=== PATIENT | female | born 1930 | race African-American/Black ===

== ENCOUNTER → 2016-11-09 | Outpatient (CLI) | payer MEDICARE, OTHER ==
[2016-11-09 09:35] LABS: ABSOLUTE EOSINOPHILS # (AUTO) 0.2 10^3/uL (0.0-0.6); ABSOLUTE LYMPHOCYTES (AUTO) 1.1 10^3/uL (0.5-4.7); ABSOLUTE MONOCYTES (AUTO) 0.8 10^3/uL (0.1-1.4); ABSOLUTE NEUT (AUTO) 3.4 10^3/uL (1.7-8.2); BASOPHILS % (AUTO) 0.5 % (0-2); EOSINOPHILS % (AUTO) 2.8 % (0-6); HEMATOCRIT 33.8 % (36.0-47.0); HEMOGLOBIN 11.3 g/dL (12.0-15.5); HGB HCT DIFFERENCE 0.1; LYMPHOCYTES % (AUTO) 20.1 % (13-45); MEAN CORPUSCULAR HEMOGLOBIN 34.4 pg (27.0-33.4); MEAN CORPUSCULAR HGB CONC 33.5 g/dL (32.0-36.0); MEAN CORPUSCULAR VOLUME 103 fl (80-97); MONOCYTES % (AUTO) 14.5 % (3-13); RED BLOOD COUNT 3.29 10^6/uL (3.72-5.28); RED CELL DISTRIBUTION WIDTH 14.1 % (11.5-14.0); SEGMENTED NEUTROPHILS % (AUTO) 62.1 % (42-78); WHITE BLOOD COUNT 5.5 10^3/uL (4.0-10.5)
[2016-11-09 10:14] LABS: ANION GAP 11 (5-19); BLOOD UREA NITROGEN 68 mg/dL (7-20); CALCIUM 9.4 mg/dL (8.4-10.2); CARBON DIOXIDE 24 mmol/L (22-30); CHLORIDE 107 mmol/L (98-107); CHOLESTEROL 128.05 mg/dL (0-200); CREATININE RESULT 2.87 mg/dL (0.52-1.25); Direct HDL 50 mg/dL (>40); GLUCOSE 107 mg/dL (75-110); POTASSIUM 4.9 mmol/L (3.6-5.0); SODIUM 142.4 mmol/L (137-145); TRIGLYCERIDES 49 mg/dL (<150)
[2016-11-09 10:24] LABS: DIRECT LDL 51 mg/dL (<100)
[2016-11-09 10:27] LABS: ALBUMIN 3.9 g/dL (3.5-5.0); ANION GAP 11 (5-19); BLOOD UREA NITROGEN 68 mg/dL (7-20); CALCIUM 9.4 mg/dL (8.4-10.2); CARBON DIOXIDE 24 mmol/L (22-30); CHLORIDE 107 mmol/L (98-107); CREATININE RESULT 2.87 mg/dL (0.52-1.25); GLUCOSE 107 mg/dL (75-110); PHOSPHORUS 3.9 mg/dL (2.5-4.5); POTASSIUM 4.9 mmol/L (3.6-5.0); SODIUM 142.4 mmol/L (137-145)
[2016-11-10 10:00] LABS: VITAMIN D 25-HYDROXY 27.5 ng/mL (30.0-100.0)
[2016-11-10 11:39] LABS: CREATININE URINE 73.7 mg/dL (Not Estab.)
[2016-11-10 12:28] LABS: MICROALBUMIN URINE 653.4 ug/mL (Not Estab.)
== END ==
LOC: LCAL 07:34
PROVIDERS: ATTEND Internal Medicine Nephrology
DX: E78.00 Pure hypercholesterolemia, unspecified (principal); Z79.899 Other long term (current) drug therapy; R06.02 Shortness of breath; N18.4 Chronic kidney disease, stage 4 (severe); R80.9 Proteinuria, unspecified; N25.81 Secondary hyperparathyroidism of renal origin; D63.1 Anemia in chronic kidney disease
CPT/HCPCS: 36415; 80048; 80061; 82040; 82043; 82306; 82570; 83880; 83970; 84100; 84443; 85025

== ENCOUNTER → 2017-02-22 | Outpatient (CLI) | payer MEDICARE, OTHER ==
[2017-02-22 13:34] LABS: ABSOLUTE EOSINOPHILS # (AUTO) 0.1 10^3/uL (0.0-0.6); ABSOLUTE LYMPHOCYTES (AUTO) 1.3 10^3/uL (0.5-4.7); ABSOLUTE MONOCYTES (AUTO) 0.9 10^3/uL (0.1-1.4); ABSOLUTE NEUT (AUTO) 4.6 10^3/uL (1.7-8.2); BASOPHILS % (AUTO) 0.4 % (0-2); EOSINOPHILS % (AUTO) 1.2 % (0-6); HEMATOCRIT 32.9 % (36.0-47.0); HEMOGLOBIN 11.1 g/dL (12.0-15.5); HGB HCT DIFFERENCE 0.4; LYMPHOCYTES % (AUTO) 19.2 % (13-45); MEAN CORPUSCULAR HEMOGLOBIN 34.7 pg (27.0-33.4); MEAN CORPUSCULAR HGB CONC 33.6 g/dL (32.0-36.0); MEAN CORPUSCULAR VOLUME 103 fl (80-97); RED BLOOD COUNT 3.18 10^6/uL (3.72-5.28); RED CELL DISTRIBUTION WIDTH 14.7 % (11.5-14.0); SEGMENTED NEUTROPHILS % (AUTO) 66.2 % (42-78); WHITE BLOOD COUNT 6.9 10^3/uL (4.0-10.5)
[2017-02-22 13:59] LABS: ALBUMIN 4.1 g/dL (3.5-5.0); ANION GAP 16 (5-19); BLOOD UREA NITROGEN 65 mg/dL (7-20); CALCIUM 9.2 mg/dL (8.4-10.2); CARBON DIOXIDE 24 mmol/L (22-30); CHLORIDE 101 mmol/L (98-107); CREATININE RESULT 3.05 mg/dL (0.52-1.25); GLUCOSE 139 mg/dL (75-110); PHOSPHORUS 3.8 mg/dL (2.5-4.5); POTASSIUM 3.7 mmol/L (3.6-5.0); SODIUM 141.4 mmol/L (137-145)
[2017-02-22 14:02] LABS: APPEARANCE,URINE CLEAR; BILIRUBIN,URINE NEGATIVE (NEGATIVE); GLUCOSE, URINE NEGATIVE (NEGATIVE); KETONES,URINE NEGATIVE (NEGATIVE); LEUKOCYTE ESTERASE,URINE NEGATIVE (NEGATIVE); NITRITE,URINE NEGATIVE (NEGATIVE); PROTEIN,URINE 100 mg/dL (NEGATIVE); URINE SPECIFIC GRAVITY 1.009; UROBILINOGEN,URINE NEGATIVE mg/dL (<2.0)
[2017-02-22 14:11] LABS: URINE CREATININE 66.7 mg/dL (15-278)
[2017-02-22 14:22] LABS: URINE PROTEIN 318.2 mg/dL (<12)
[2017-02-23 07:04] LABS: VITAMIN D 25-HYDROXY 31.3 ng/mL (30.0-100.0)
== END ==
LOC: OD 12:47
PROVIDERS: ATTEND Internal Medicine Nephrology
DX: N18.4 Chronic kidney disease, stage 4 (severe) (principal); D63.1 Anemia in chronic kidney disease; E83.39 Other disorders of phosphorus metabolism
CPT/HCPCS: 36415; 80048; 81001; 82040; 82306; 82570; 83970; 84100; 84156; 85025

== ENCOUNTER → 2017-04-02 | Outpatient (CLI) | payer MEDICARE, OTHER ==
[2017-04-02 11:38] LABS: APPEARANCE,URINE SLIGHTLY-CLOUDY; BILIRUBIN,URINE NEGATIVE (NEGATIVE); GLUCOSE, URINE 50 mg/dL (NEGATIVE); KETONES,URINE NEGATIVE (NEGATIVE); LEUKOCYTE ESTERASE,URINE NEGATIVE (NEGATIVE); NITRITE,URINE NEGATIVE (NEGATIVE); PROTEIN,URINE >=500 mg/dL (NEGATIVE); UROBILINOGEN,URINE NEGATIVE mg/dL (<2.0)
[2017-04-02 11:49] LABS: ABSOLUTE EOSINOPHILS # (AUTO) 0.1 10^3/uL (0.0-0.6); ABSOLUTE LYMPHOCYTES (AUTO) 1.4 10^3/uL (0.5-4.7); ABSOLUTE MONOCYTES (AUTO) 0.8 10^3/uL (0.1-1.4); ABSOLUTE NEUT (AUTO) 4.7 10^3/uL (1.7-8.2); BASOPHILS % (AUTO) 0.5 % (0-2); EOSINOPHILS % (AUTO) 1.8 % (0-6); HEMATOCRIT 29.3 % (36.0-47.0); HEMOGLOBIN 10.1 g/dL (12.0-15.5); LYMPHOCYTES % (AUTO) 20.2 % (13-45); MEAN CORPUSCULAR HEMOGLOBIN 34.9 pg (27.0-33.4); MEAN CORPUSCULAR HGB CONC 34.3 g/dL (32.0-36.0); MEAN CORPUSCULAR VOLUME 102 fl (80-97); MONOCYTES % (AUTO) 11.6 % (3-13); RED BLOOD COUNT 2.88 10^6/uL (3.72-5.28); RED CELL DISTRIBUTION WIDTH 15.1 % (11.5-14.0); SEGMENTED NEUTROPHILS % (AUTO) 65.9 % (42-78); WHITE BLOOD COUNT 7.1 10^3/uL (4.0-10.5)
[2017-04-02 12:00] LABS: URINE CREATININE 76.4 mg/dL (15-278)
[2017-04-02 12:12] LABS: ALBUMIN 3.2 g/dL (3.5-5.0); ANION GAP 11 (5-19); BLOOD UREA NITROGEN 48 mg/dL (7-20); CALCIUM 8.4 mg/dL (8.4-10.2); CARBON DIOXIDE 24 mmol/L (22-30); CHLORIDE 106 mmol/L (98-107); CREATININE RESULT 3.03 mg/dL (0.52-1.25); GLUCOSE 197 mg/dL (75-110); PHOSPHORUS 4.1 mg/dL (2.5-4.5); POTASSIUM 3.8 mmol/L (3.6-5.0)
[2017-04-02 12:20] LABS: URINE PROTEIN 831.5 mg/dL (<12)
[2017-04-04 10:39] LABS: VITAMIN D 25-HYDROXY 23.8 ng/mL (30.0-100.0)
== END ==
LOC: OD 10:46
PROVIDERS: ATTEND Internal Medicine Nephrology
DX: N18.4 Chronic kidney disease, stage 4 (severe) (principal); D63.1 Anemia in chronic kidney disease; E83.39 Other disorders of phosphorus metabolism
CPT/HCPCS: 36415; 80048; 81001; 82040; 82306; 82570; 83970; 84100; 84156; 85025

== ENCOUNTER 2017-05-07 09:48 | Emergency (ER) | payer MEDICARE, OTHER ==
--- NOTE | 2017-05-07 10:37 | ER Document Report ---
ED Medical Screen (RME) - General Chief Complaint: Nausea Stated Complaint: NAUSEA Time Seen by Provider: 05/07/17 10:36 Notes: Renal failure patient who is not on dialysis yet was at [facility] [place] began to feel poorly with nausea and right upper quadrant abdominal pain. She had been having right upper quadrant abdominal pain off and on for at least a month. She was checked by her ict project manager but ultrasound has not been done. EMS gave Zofran in route and she does feel much better at this time. I have greeted and performed a rapid initial assessment of this patient. A comprehensive ED assessment and evaluation of the patient, analysis of test results and completion of the medical decision making process will be conducted by additional ED providers. TRAVEL OUTSIDE OF THE [place] IN LAST 30 DAYS: No - Related Data Allergies/Adverse Reactions: codeine [Codeine] Allergy (Mild, Verified 05/07/17 10:28) n/v enalaprilat dihydrate [From Vasotec] Allergy (Mild, Verified 05/07/17 10:28) coughing cephalexin monohydrate [From Keflex] Allergy (Unknown, Verified 05/07/17 10:28) sulfamethoxazole [From Bactrim] Allergy (Unknown, Verified 05/07/17 10:28) trimethoprim [From Bactrim] Allergy (Unknown, Verified 05/07/17 10:28) Past Medical History - Social History Frequency of alcohol use: None Drug Abuse: None - Past Medical History Cardiac Medical History: Reports: Hx Congestive Heart Failure, Hx Hypercholesterolemia, Hx Hypertension Pulmonary Medical History: Neurological Medical History: Endocrine Medical History: Reports: Hx Diabetes Mellitus Type 2, Hx Hypothyroidism Renal/ Medical History: Denies: Hx Peritoneal Dialysis GI Medical History: Reports: Hx Gastroesophageal Reflux Disease Musculoskeltal Medical History: Psychiatric Medical History: Reports: Hx Depression - New Past Surgical History: Reports: Hx Cardiac Surgery - Stents, Hx Hysterectomy, Hx Tonsillectomy - Immunizations Hx Diphtheria, Pertussis, Tetanus Vaccination: Yes Physical Exam - Vital signs Vitals: Temp Pulse Resp BP Pulse Ox 97.8 F 55 L 20 149/55 H 100 05/07/17 09:56 05/07/17 09:56 05/07/17 09:56 05/07/17 09:56 05/07/17 09:56 Course - Vital Signs Vital signs: Temp Pulse Resp BP Pulse Ox 97.8 F 55 L 20 149/55 H 100 05/07/17 09:56 05/07/17 09:56 05/07/17 09:56 05/07/17 09:56 05/07/17 09:56
[2017-05-07 11:05] LABS: APPEARANCE,URINE SLIGHTLY-CLOUDY; BILIRUBIN,URINE NEGATIVE (NEGATIVE); GLUCOSE, URINE NEGATIVE (NEGATIVE); KETONES,URINE NEGATIVE (NEGATIVE); LEUKOCYTE ESTERASE,URINE MODERATE (NEGATIVE); NITRITE,URINE NEGATIVE (NEGATIVE); PROTEIN,URINE >=500 mg/dL (NEGATIVE); URINE SPECIFIC GRAVITY 1.009; UROBILINOGEN,URINE NEGATIVE mg/dL (<2.0)
[2017-05-07 11:22] LABS: ABSOLUTE EOSINOPHILS # (AUTO) 0.1 10^3/uL (0.0-0.6); ABSOLUTE LYMPHOCYTES (AUTO) 0.9 10^3/uL (0.5-4.7); ABSOLUTE MONOCYTES (AUTO) 0.7 10^3/uL (0.1-1.4); ABSOLUTE NEUT (AUTO) 5.4 10^3/uL (1.7-8.2); BASOPHILS % (AUTO) 0.6 % (0-2); EOSINOPHILS % (AUTO) 0.7 % (0-6); HEMATOCRIT 31.8 % (36.0-47.0); HEMOGLOBIN 10.8 g/dL (12.0-15.5); HGB HCT DIFFERENCE 0.6; LYMPHOCYTES % (AUTO) 12.8 % (13-45); MEAN CORPUSCULAR HEMOGLOBIN 34.6 pg (27.0-33.4); MEAN CORPUSCULAR HGB CONC 34.1 g/dL (32.0-36.0); MEAN CORPUSCULAR VOLUME 101 fl (80-97); MONOCYTES % (AUTO) 9.4 % (3-13); RED BLOOD COUNT 3.13 10^6/uL (3.72-5.28); RED CELL DISTRIBUTION WIDTH 14.2 % (11.5-14.0); SEGMENTED NEUTROPHILS % (AUTO) 76.5 % (42-78); WHITE BLOOD COUNT 7.1 10^3/uL (4.0-10.5)
--- NOTE | 2017-05-07 11:51 | RADIOLOGY REPORT (SQ) ---
EXAM DESCRIPTION: U/S ABDOMEN LIMITED W/O DOP COMPLETED DATE/TIME: 05/07/2017 11:39 am REASON FOR STUDY: RUQ abd pain COMPARISON: CT chest 12/11/2015 TECHNIQUE: Dynamic and static grayscale images acquired of the abdomen and recorded on PACS. Additio nal selected color Doppler and spectral images recorded. LIMITATIONS: Midline bowel gas, hepatic flexure of colon shadowing over the gallbladder fossa FINDINGS: PANCREAS: Midline pancreas unremarkable LIVER: No masses. Echotexture normal. LIVER VASCULATURE: Normal directional flow of the main portal vein and hepatic veins. GALLBLADDER: Limited visualization. No stones. No gallbladder wall thickening. No pericholecystic fluid. ULTRASOUND-DETECTED KOENIG'S SIGN: Negative. INTRAHEPATIC DUCTS AND COMMON DUCT: CBD and intrahepatic ducts normal caliber. No filling defects. INFERIOR VENA CAVA: Normal flow. AORTA: Diffuse atherosclerotic calcification without aneurysm RIGHT KIDNEY: 10 cm in length, with diffuse cortical thinning and increased echogenicity from medica l renal disease. No right hydronephrosis. No cysts, stones, or masses PERITONEAL AND RIGHT PLEURAL SPACE: No ascites or effusions. OTHER: No other significant findings. IMPRESSION: No gallstones or ultrasound evidence of acute cholecystitis TECHNICAL DOCUMENTATION: JOB ID: [id number] [employer]- All Rights Reserved
--- NOTE | 2017-05-07 12:30 | ER Document Report ---
ED General - General Chief Complaint: Nausea Stated Complaint: NAUSEA Time Seen by Provider: 05/07/17 10:36 Mode of Arrival: Ambulatory Information source: Patient, Emergency Med Personnel Notes: 87 yr old female presents with complaints of nausea after eating at [employer]. Pt denies any fevers or chills, denies any vomiting. TRAVEL OUTSIDE OF THE [place] IN LAST 30 DAYS: No - HPI Onset: Just prior to arrival Onset/Duration: Sudden Quality of pain: Cramping Severity: Mild Pain Level: Denies Associated symptoms: Nausea Exacerbated by: Food Relieved by: Denies Similar symptoms previously: No Recently seen / treated by doctor: No - Related Data Allergies/Adverse Reactions: codeine [Codeine] Allergy (Mild, Verified 05/07/17 10:28) n/v enalaprilat dihydrate [From Vasotec] Allergy (Mild, Verified 05/07/17 10:28) coughing cephalexin monohydrate [From Keflex] Allergy (Unknown, Verified 05/07/17 10:28) sulfamethoxazole [From Bactrim] Allergy (Unknown, Verified 05/07/17 10:28) trimethoprim [From Bactrim] Allergy (Unknown, Verified 05/07/17 10:28) Past Medical History - Social History Smoking Status: Never Smoker Cigarette use (# per day): No Chew tobacco use (# tins/day): No Smoking Education Provided: No Frequency of alcohol use: None Drug Abuse: None Family History: CAD - Past Medical History Cardiac Medical History: Reports: Hx Congestive Heart Failure, Hx Hypercholesterolemia, Hx Hypertension Pulmonary Medical History: Neurological Medical History: Endocrine Medical History: Reports: Hx Diabetes Mellitus Type 2, Hx Hypothyroidism Renal/ Medical History: Denies: Hx Peritoneal Dialysis GI Medical History: Reports: Hx Gastroesophageal Reflux Disease Musculoskeltal Medical History: Psychiatric Medical History: Reports: Hx Depression - New Past Surgical History: Reports: Hx Cardiac Surgery - Stents, Hx Hysterectomy, Hx Tonsillectomy - Immunizations Hx Diphtheria, Pertussis, Tetanus Vaccination: Yes Hx Pneumococcal Vaccination: 06/20/15 Review of Systems - Review of Systems Notes: REVIEW OF SYSTEMS: CONSTITUTIONAL : Denies fever, chills, or sweats. Denies recent illness. EENT: Denies eye, ear, throat, or mouth pain or symptoms. Denies nasal or sinus congestion or discharge. Denies throat, tongue, or mouth swelling or difficulty swallowing. CARDIOVASCULAR: Denies chest pain. Denies palpitations or racing or irregular heart beat. Denies ankle edema. RESPIRATORY: Denies cough, cold, or chest congestion. Denies shortness of breath, difficulty breathing, or wheezing. GASTROINTESTINAL: Admits to nausea GENITOURINARY: Denies difficulty urinating, painful urination, burning, frequency, blood in urine, or discharge. FEMALE GENITOURINARY: Denies vaginal bleeding, heavy or abnormal periods, irregular periods. Denies vaginal discharge or odor. MUSCULOSKELETAL: Denies back or neck pain or stiffness. Denies joint pain or swelling. SKIN: Denies rash, lesions or sores. HEMATOLOGIC : Denies easy bruising or bleeding. LYMPHATIC: Denies swollen, enlarged glands. NEUROLOGICAL: Denies confusion or altered mental status. Denies passing out or loss of consciousness. Denies dizziness or lightheadedness. Denies headache. Denies weakness or paralysis or loss of use of either side. Denies problems with gait or speech. Denies sensory loss, numbness, or tingling. Denies seizures. PSYCHIATRIC: Denies anxiety or stress. Denies depression, suicidal ideation, or homicidal ideation. ALL OTHER SYSTEMS REVIEWED AND NEGATIVE. PHYSICAL EXAMINATION: GENERAL: Well-appearing, well-nourished and in no acute distress. HEAD: Atraumatic, normocephalic. EYES: Pupils equal round and reactive to light, extraocular movements intact, conjunctiva are normal. ENT: Nares patent, oropharynx clear without exudates. Moist mucous membranes. NECK: Normal range of motion, supple without lymphadenopathy LUNGS: Breath sounds clear to auscultation bilaterally and equal. No wheezes rales or rhonchi. HEART: Regular rate and rhythm without murmurs ABDOMEN: Soft, nontender, nondistended abdomen. No guarding, no rebound. No masses appreciated. Female : deferred Musculoskeletal: Normal range of motion, no pitting or edema. No cyanosis. NEUROLOGICAL: Cranial nerves grossly intact. Normal speech, normal gait. Normal sensory, motor exams PSYCH: Normal mood, normal affect. SKIN: Warm, Dry, normal turgor, no rashes or lesions noted. Dictation was performed using [employer] voice recognition software Physical Exam - Vital signs Vitals: Temp Pulse Resp BP Pulse Ox 97.8 F 55 L 20 149/55 H 100 08/18/17 09:56 05/07/17 09:56 05/07/17 09:56 05/07/17 09:56 05/07/17 09:56 Course - Re-evaluation Re-evalutation: 05/07/17 12:38 Physical examination lab work note no significant abnormality patient otherwise looks well. 05/07/17 14:33 Patient has been completely asymptomatic since, 05/07/17 15:24 Patient has stayed asymptomatic, mild lipase elevation noted, otherwise she looks well is in no distress. CT did not note any significant abnormality I will discharge home at this time After performing a Medical Screening Examination, I estimate there is LOW risk for ACUTE APPENDICITIS, BOWEL OBSTRUCTION, ACUTE CHOLECYSTITIS, PERFORATED DIVERTICULITIS, INCARCERATED HERNIA, PANCREATITIS, PELVIC INFLAMMATORY DISEASE, PERFORATED ULCER, ECTOPIC , or TUBO-OVARIAN ABSCESS, thus I consider the discharge disposition reasonable. Also, there is no evidence or peritonitis , sepsis, or toxicity. I have reevaluated this patient multiple times and no significant life threatening changes are noted. The patient and I have discussed the diagnosis and risks, and we agree with discharging home with close follow-up with the understanding that symptoms and presentations can change. We also discussed returning to the Emergency Department immediately if new or worsening symptoms occur. We have discussed the symptoms which are most concerning (e.g., bloody stool, fever, changing or worsening pain, vomiting) that necessitate immediate return. - Vital Signs Vital signs: Temp Pulse Resp BP Pulse Ox 97.5 F 61 16 147/59 H 100 05/07/17 13:56 05/07/17 13:56 05/07/17 13:56 05/07/17 13:56 05/07/17 13:56 - Laboratory Result Diagrams: 05/07/17 10:55 05/07/17 13:24 Laboratory results interpreted by me: 05/07/17 05/07/17 05/07/17 10:49 10:55 13:24 RBC 3.13 L Hgb 10.8 L Hct 31.8 L MCV 101 H MCH 34.6 H RDW 14.2 H Lymphocytes % 12.8 L Sodium 135.4 L Chloride 97 L BUN 112 H Creatinine 5.75 H Est GFR ( Amer) 8 L Est GFR (Non-Af Amer) 7 L Glucose 165 H Direct Bilirubin 0.5 H Lipase 400.3 H Urine Protein >=500 H Ur Leukocyte Esterase MODERATE H - Diagnostic Test Radiology reviewed: Image reviewed, Reports reviewed - report given to daughter Discharge - Discharge Clinical Impression: Elevated lipase, Nausea CKD (chronic kidney disease) Qualifiers: Chronic kidney disease stage: stage 4 (severe) Qualified Code(s): N18.4 - Chronic kidney disease, stage 4 (severe) Condition: Stable Disposition: HOME, SELF-CARE Instructions: Pancreatitis ([facility]) Prescriptions: Ondansetron [Zofran Odt 4 mg Tablet] 1 - 2 tab PO Q4H PRN #15 tab.rapdis PRN Reason: For Nausea/Vomiting Referrals: MELINA CHAVEZ MD [Primary Care Provider] - Follow up tomorrow
[2017-05-07 13:57] VITALS: BP 147/59
[2017-05-07 14:04] LABS: ALANINE AMINOTRANSFERASE 32 U/L (9-52); ALBUMIN 3.7 g/dL (3.5-5.0); ALKALINE PHOSPHATASE 89 U/L (38-126); ANION GAP 13 (5-19); ASPARTATE AMINO TRANSFERASE 26 U/L (14-36); BILIRUBIN,DIRECT 0.5 mg/dL (0.0-0.4); BILIRUBIN,TOTAL 0.5 mg/dL (0.2-1.3); BLOOD UREA NITROGEN 112 mg/dL (7-20); CALCIUM 8.9 mg/dL (8.4-10.2); CARBON DIOXIDE 25 mmol/L (22-30); CHLORIDE 97 mmol/L (98-107); CREATININE RESULT 5.75 mg/dL (0.52-1.25); GLUCOSE 165 mg/dL (75-110); POTASSIUM 3.9 mmol/L (3.6-5.0); SODIUM 135.4 mmol/L (137-145)
[2017-05-07 14:05] LABS: LIPASE 400.3 U/L (23-300); TOTAL PROTEIN 6.9 g/dL (6.3-8.2)
--- NOTE | 2017-05-07 15:21 | RADIOLOGY REPORT (SQ) ---
"EXAM DESCRIPTION: CT ABD/PELVIS NO ORAL OR IV COMPLETED DATE/TIME: 05/07/2017 2:48 pm REASON FOR STUDY: elevated lipase COMPARISON: Abdominal ultrasound 05/07/2017, 05/04/2008 TECHNIQUE: CT scan of the abdomen and pelvis performed without intravenous or oral contrast. Images reviewed with lung, soft tissue, and bone windows. Reconstructed coronal and sagittal MPR images revi ewed. All images stored on PACS. All CT scanners at this facility use dose modulation, iterative reconstruction, and/or weight based d osing when appropriate to reduce radiation dose to as low as reasonably achievable (ALARA). [facility]: Dose Right [facility]: CareDose [facility]: Dose Right [facility]: Teradose 4D [facility]: Smart WOWIO RADIATION DOSE: Up-to-date CT equipment and radiation dose reduction techniques were employed. CTDIv ol: 5.8 mGy. DLP: 293 mGy-cm.mGy. LIMITATIONS: None. FINDINGS: LOWER CHEST: No significant findings. No nodules or infiltrates. NON-CONTRASTED LIVER, SPLEEN, ADRENALS: 1.5 x 1.3 cm right adrenal nodule. Left adrenal gland, liver , spleen unremarkable PANCREAS: No masses. No peripancreatic inflammatory changes. GALLBLADDER: No identified stones by CT criteria. No inflammatory changes to suggest cholecystitis. RIGHT KIDNEY AND URETER: No suspicious masses. Assessment limited by lack of IV contrast. Right kidn ey is small, 8 cm in greatest length, with cortical thinning. Punctate calcification right mid-pole kidney, could be vascular or pain nonobstructive tiny intrarenal stone 2 to 3 mm in size. . No hyd ronephrosis or hydroureter. LEFT KIDNEY AND URETER: No suspicious masses. Assessment limited by lack of IV contrast. 3 cm left u pper pole renal cortical cyst, 1.6 cm left midpole renal cortical cyst. Left kidney is small, 7 cm i n greatest length. No significant calcifications. No hydronephrosis or hydroureter. AORTA AND RETROPERITONEUM: No aneurysm. No retroperitoneal masses or adenopathy. BOWEL AND PERITONEAL CAVITY: No obvious masses or inflammatory changes. No free fluid. APPENDIX: Not definitely identified. No right lower quadrant inflammatory change. PELVIS, BLADDER, AND ABDOMINAL WALL:No abnormal masses. No free fluid. Bladder normal. Post hysterec rober BONES: No significant findings. OTHER: No other significant finding. IMPRESSION: No CT evidence of acute pancreatitis. Small bilateral kidneys, left renal cortical cysts. TECHNICAL DOCUMENTATION: JOB ID: [id number] Quality ID # [id number]: Final reports with documentation of one or more dose reduction techniques (e.g., Au tomated exposure control, adjustment of the mA and/or kV according to patient size, use of iterative reconstruction technique) 2010 [employer] | [employer]- All Rights Reserved"
== END 2017-05-07 15:49 | disposition home or self-care (01) ==
LOC: ER 09:48
DX: N18.4 Chronic kidney disease, stage 4 (severe) (principal); R11.0 Nausea
CPT/HCPCS: 36415; 74176; 76705; 80053; 81001; 83690; 85025; 99284

== ENCOUNTER 2017-05-28 11:04 | Inpatient (IN) | payer MEDICARE, OTHER ==
--- NOTE | 2017-05-28 11:46 | ER Document Report ---
ED Dizziness/Weakness - General Chief Complaint: Weakness Stated Complaint: WEAKNESS Time Seen by Provider: 05/28/17 11:38 Mode of Arrival: Medic Information source: Patient Notes: 87 yo female with confusion at times, [place] that lives at [facility] (x 1 yr ) Feels like she is not doing well. 05-07 seen for nausea, scans (tx with zofran ) using some since. Am's nausea. Decreased activity and appetite past few days with increased nausea, and didn't want to get out of bed this morning. Wednesday while waiting in car for 15 minutes at the outlets, got up and was dizzy. PMH: stage 5 renal dx (13%)-dr olguin, she refused to get blood drawn yesterday appt was today at 0830. dm2. Hx. CHF & CAD, stents. Hypothyroidism. dr. VILLALBA turosemide increased on the 05-03. PCP: dr chavez TRAVEL OUTSIDE OF THE [place] IN LAST 30 DAYS: No - Related Data Allergies/Adverse Reactions: codeine [Codeine] Allergy (Mild, Verified 05/07/17 10:28) n/v enalaprilat dihydrate [From Vasotec] Allergy (Mild, Verified 05/07/17 10:28) coughing cephalexin monohydrate [From Keflex] Allergy (Unknown, Verified 05/07/17 10:28) sulfamethoxazole [From Bactrim] Allergy (Unknown, Verified 05/07/17 10:28) trimethoprim [From Bactrim] Allergy (Unknown, Verified 05/07/17 10:28) Home Medications: Current Home Medications Acetaminophen [Tylenol 325 mg Tablet] 650 mg PO Q8 PRN 05/28/17 [History] Albuterol Sulfate [Proair HFA] 2 puff IH Q6 PRN 05/28/17 [History] Amlodipine Besylate 2.5 mg PO DAILY 05/28/17 [History] Calcitriol [Calcitriol] 0.25 mcg PO Q2DAYS 05/28/17 [History] Calcium Carbonate [Calcium] 500 mg PO BID 05/28/17 [History] Carvedilol [Coreg] 1 tab PO Q12 05/28/17 [History] Cholecalciferol (Vitamin D3) [Vitamin D3 1000 Unit Tablet] 1,000 unit PO DAILY 05/28/17 [History] Clonidine HCl 0.3 mg PO Q8 05/28/17 [History] Doxazosin Mesylate [Cardura] 8 mg PO DAILY 05/28/17 [History] Doxycycline Hyclate 20 mg PO BID 05/28/17 [History] Ezetimibe [Zetia 10 mg Tablet] 10 mg PO DAILY 05/28/17 [History] Ferrous Sulfate 325 mg PO BID 05/28/17 [History] Fluticasone Propionate [Flonase Nasal [place] 50 Mcg/[place] 16 gm] 2 spray NASL DAILY 05/28/17 [History] Hydralazine HCl 100 mg PO TID 05/28/17 [History] Ipratropium/Albuterol Sulfate [Iprat-Albut 0.5-3(2.5) Mg/3 Ml] 3 ml IH Q6 PRN [History] Isosorbide Dinitrate [Isordil Titradose 20 Mg Tablet] 20 mg PO TID 05/28/17 [ History] Levothyroxine Sodium 125 mcg PO DAILY 05/28/17 [History] Nystatin 1 each TOP PRN PRN 05/28/17 [History] Ondansetron [Zofran Odt 4 mg Tablet] 4 mg PO Q8H PRN 05/28/17 [History] Sennosides/Docusate Sodium [Senna-S Tablet] 1 each PO DAILY PRN 05/28/17 [ History] Sertraline HCl [Zoloft] 25 mg PO DAILY 05/28/17 [History] Simvastatin 20 mg PO DAILY 05/28/17 [History] Sodium Bicarbonate [Sodium Bicarbonate 650 mg Tablet] 650 mg PO DAILY 05/28/17 [ History] Spironolactone 25 mg PO DAILY 05/28/17 [History] Torsemide [Demadex] 40 mg PO DAILY 05/28/17 [History] Past Medical History - General Information source: Patient - Social History Smoking Status: Former Smoker Chew tobacco use (# tins/day): No Frequency of alcohol use: None Drug Abuse: None Family History: CAD, Hypertension - Past Medical History Cardiac Medical History: Reports: Hx Congestive Heart Failure, Hx Coronary Artery Disease - stents, Hx Hypercholesterolemia, Hx Hypertension Pulmonary Medical History: Neurological Medical History: Endocrine Medical History: Reports: Hx Diabetes Mellitus Type 2, Hx Hypothyroidism Renal/ Medical History: Reports: Hx End Stage Renal Disease. Denies: Hx Peritoneal Dialysis GI Medical History: Reports: Hx Gastroesophageal Reflux Disease Musculoskeltal Medical History: Psychiatric Medical History: Reports: Hx Depression - New Past Surgical History: Reports: Hx Cardiac Surgery - Stents, Hx Hysterectomy, Hx Tonsillectomy - Immunizations Hx Diphtheria, Pertussis, Tetanus Vaccination: Yes Hx Pneumococcal Vaccination: 06/20/15 Review of Systems - Review of Systems Constitutional: See HPI EENT: No symptoms reported Cardiovascular: No symptoms reported Respiratory: No symptoms reported Gastrointestinal: See HPI Genitourinary: No symptoms reported Female Genitourinary: No symptoms reported Musculoskeletal: No symptoms reported Skin: No symptoms reported Hematologic/Lymphatic: No symptoms reported Neurological/Psychological: See HPI Physical Exam - Vital signs Vitals: Temp Pulse Resp BP Pulse Ox 97.5 F 46 L 20 162/58 H 96 05/28/17 11:11 05/28/17 11:11 05/28/17 11:11 05/28/17 11:11 05/28/17 11:11 Interpretation: Normal - General General appearance: Appears well, Alert In distress: None - HEENT Head: Normocephalic, Atraumatic Eyes: Normal Conjunctiva: Normal Pupils: PERRL Mucous membranes: Dry Neck: Supple. No: Lymphadenopathy - Respiratory Respiratory status: No respiratory distress Chest status: Nontender Breath sounds: Normal Chest palpation: Normal - Cardiovascular Rhythm: Regular, Bradycardia, Other - few unifocal PVC Heart sounds: Normal auscultation Murmur: No - Abdominal Inspection: Normal Distension: No distension Bowel sounds: Normal Tenderness: Nontender. No: Tender Organomegaly: No organomegaly - Back Back: Normal, Nontender. No: CVA tenderness - Extremities General upper extremity: Normal inspection, Nontender, Normal color, Normal ROM , Normal temperature General lower extremity: Normal inspection, Nontender, Edema - mild bilateral, Normal color, Normal ROM, Normal temperature, Normal weight bearing. No: José Miguel' s sign - Neurological Neuro grossly intact: Yes Cognition: Normal Orientation: AAOx4 [place] Coma Scale Eye Opening: Spontaneous [place] Coma Scale Verbal: Oriented [place] Coma Scale Motor: Obeys Commands Golden Coma Scale Total: 15 Speech: Normal Motor strength normal: LUE, RUE, LLE, RLE Sensory: Normal - Psychological Associated symptoms: Normal affect, Normal mood Notes: forgetful seeking information from her daughter - Skin Skin Temperature: Warm Skin Moisture: Dry Skin Color: Normal Skin irregularity: negative: Rash Course - Re-evaluation Re-evalutation: 05/28/17 12:51 borderline cardiomegaly without failure. 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 05/28/17 12:52 05/28/17 13:38 bun and creatitnine are elevating. cardiacs negative. ekg SB 1 degree AV block with unifocal PVC dr. olguin will do dialysis today, dr gray is putting the trialysis catheter, dr. ambrosio will admit to medical floor. pt agrees to the procedure 05/28/17 13:40 - Vital Signs Vital signs: Temp Pulse Resp BP Pulse Ox 97.5 F 46 L 20 162/58 H 96 05/28/17 11:11 05/28/17 11:11 05/28/17 11:11 05/28/17 11:11 05/28/17 11:11 - Laboratory Result Diagrams: 05/28/17 11:08 05/28/17 11:08 Laboratory results interpreted by me: 05/28/17 05/28/17 05/28/17 11:08 11:08 11:08 RBC 3.42 L Hgb 11.9 L Hct 34.7 L MCV 101 H MCH 34.8 H RDW 14.1 H Chloride 95 L BUN 121 H Creatinine 7.05 H Est GFR ( Amer) 7 L Est GFR (Non-Af Amer) 5 L Glucose 181 H Magnesium 3.1 H Direct Bilirubin 0.6 H AST 37 H TSH 11.90 H Urine Protein Ur Leukocyte Esterase 05/28/17 12:26 RBC Hgb Hct MCV MCH RDW Chloride BUN Creatinine Est GFR ( Amer) Est GFR (Non-Af Amer) Glucose Magnesium Direct Bilirubin AST TSH Urine Protein 100 H Ur Leukocyte Esterase SMALL H Discharge - Discharge Clinical Impression: end stage renal disease, azotemia, dialysis onset Condition: Stable Disposition: ADMITTED INPATIENT Admitting Provider: Hospitalist Unit Admitted: Medical Floor - 4th floor dialysis Referrals: MELINA CHAVEZ MD [Primary Care Provider] - Follow up as needed
[2017-05-28 12:00] LABS: ABSOLUTE EOSINOPHILS # (AUTO) 0.1 10^3/uL (0.0-0.6); ABSOLUTE LYMPHOCYTES (AUTO) 1.1 10^3/uL (0.5-4.7); ABSOLUTE MONOCYTES (AUTO) 0.5 10^3/uL (0.1-1.4); ABSOLUTE NEUT (AUTO) 4.8 10^3/uL (1.7-8.2); ALANINE AMINOTRANSFERASE 17 U/L (9-52); ALBUMIN 4.4 g/dL (3.5-5.0); ALKALINE PHOSPHATASE 78 U/L (38-126); ANION GAP 16 (5-19); ASPARTATE AMINO TRANSFERASE 37 U/L (14-36); BASOPHILS % (AUTO) 0.4 % (0-2); BILIRUBIN,DIRECT 0.6 mg/dL (0.0-0.4); BILIRUBIN,TOTAL 0.6 mg/dL (0.2-1.3); CALCIUM 9.6 mg/dL (8.4-10.2); CARBON DIOXIDE 27 mmol/L (22-30); CHLORIDE 95 mmol/L (98-107); CREATININE RESULT 7.05 mg/dL (0.52-1.25); EOSINOPHILS % (AUTO) 0.9 % (0-6); GLUCOSE 181 mg/dL (75-110); HEMATOCRIT 34.7 % (36.0-47.0); HEMOGLOBIN 11.9 g/dL (12.0-15.5); MAGNESIUM 3.1 mg/dL (1.6-2.3); MEAN CORPUSCULAR HEMOGLOBIN 34.8 pg (27.0-33.4); MEAN CORPUSCULAR HGB CONC 34.3 g/dL (32.0-36.0); MEAN CORPUSCULAR VOLUME 101 fl (80-97); MONOCYTES % (AUTO) 8.3 % (3-13); POTASSIUM 3.8 mmol/L (3.6-5.0); RED BLOOD COUNT 3.42 10^6/uL (3.72-5.28); RED CELL DISTRIBUTION WIDTH 14.1 % (11.5-14.0); SEGMENTED NEUTROPHILS % (AUTO) 73.4 % (42-78); SODIUM 138.1 mmol/L (137-145); TOTAL PROTEIN 7.9 g/dL (6.3-8.2); WHITE BLOOD COUNT 6.5 10^3/uL (4.0-10.5)
[2017-05-28 12:07] LABS: BLOOD UREA NITROGEN 121 mg/dL (7-20)
--- NOTE | 2017-05-28 12:37 | RADIOLOGY REPORT (SQ) ---
EXAM DESCRIPTION: CHEST SINGLE VIEW COMPLETED DATE/TIME: 05/28/2017 12:22 pm REASON FOR STUDY: weakness, nausea COMPARISON: 01/14/2016 EXAM PARAMETERS: NUMBER OF VIEWS: One view. TECHNIQUE: Single frontal radiographic view of the chest acquired. RADIATION DOSE: NA LIMITATIONS: None. FINDINGS: LUNGS AND PLEURA: No opacities, masses or pneumothorax. No pleural effusion. MEDIASTINUM AND HILAR STRUCTURES: No masses. Contour normal. HEART AND VASCULAR STRUCTURES: Heart size is borderline. There is no evidence of failure. BONES: No acute findings. HARDWARE: None in the chest. OTHER: No other significant finding. IMPRESSION: Borderline cardiomegaly without CHF. TECHNICAL DOCUMENTATION: JOB ID: [id number]
[2017-05-28 12:48] LABS: CREATINE KINASE MB 1.74 ng/mL (<4.55); TROPONIN I 0.013 ng/mL
[2017-05-28 13:01] LABS: APPEARANCE,URINE SLIGHTLY-CLOUDY; BILIRUBIN,URINE NEGATIVE (NEGATIVE); GLUCOSE, URINE NEGATIVE (NEGATIVE); KETONES,URINE NEGATIVE (NEGATIVE); LEUKOCYTE ESTERASE,URINE SMALL (NEGATIVE); NITRITE,URINE NEGATIVE (NEGATIVE); PROTEIN,URINE 100 mg/dL (NEGATIVE); URINE SPECIFIC GRAVITY 1.009; UROBILINOGEN,URINE NEGATIVE mg/dL (<2.0)
--- NOTE | 2017-05-28 13:13 | EKG REPORT ---
SEVERITY:- ABNORMAL ECG - SINUS RHYTHM MULTIPLE VENTRICULAR PREMATURE COMPLEXES FIRST DEGREE AV BLOCK LEFT VENTRICULAR HYPERTROPHY : Confirmed by: Mario Tirado MD 28-May-2017 13:12:57
[2017-05-28] MEDS ORDERED: NORMAL SALINE 1000 ML 1,000 ML IV PRN (15:56)
[2017-05-28] MEDS ORDERED: ACETAMINOPHEN 325 MG TABLET PO PRN (16:26)
--- NOTE | 2017-05-28 16:54 | PDOC CONSULTATION ---
Consultation Consult Date: 05/28/17 Attending physician:: NAEEM CAIN Consult reason:: I was asked by the emergency room provider Serina Esquivel NP and Dr. Lozoya to see this patient because of uremic symptoms requiring emergent initiation of hemodialysis. History of Present Illness Admission Date/PCP: 05/28/17 14:15 MELINA CHAVEZ MD History of Present Illness: SUDHIR HANSON is a 87 year old female known to me with history of chronic kidney disease stage V secondary to hypertensive nephrosclerosis, hypertension, diabetes mellitus type 2, and coronary artery disease who presented to the emergency room today because of weakness and persistent nausea and vomiting. On May 07, 2017 patient presented with symptoms of of nausea and vomiting after eating at [facility]. Patient was evaluated here in the emergency room and she has had abdominal ultrasound and CT scan of the abdomen which was negative. At that time she did have elevated BUN of 112 and creatinine of 5.75. She was sent home with Zofran. Prior to that when I last saw her in the clinic on April 16 she had a BUN of 79 and creatinine of 4.07 with estimated GFR of 13. Patient has been having progressively increasing of her bilateral lower extremity edema for the last 2 months. This requires increasing her diuretics with addition of metolazone. Patient swelling has improved and she was feeling okay for a while. However since May 07 patient admitted that that she has been having periodic nausea and vomiting which has gotten worse for the past week. She admitted feeling dizzy, weak and has decreased appetite. Her daughter reports that the patient has not been eating well no drinking fluids well. Patient denies any decrease in urine output. She denies any chest pains no shortness of breath no cough. She saw Dr. 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 There was also some report of confusion periodically at [facility] where she resides. On Wednesday she has had another basic metabolic panel which shows a BUN of 127 and creatinine of 6.97. I held her metolazone and decrease her torsemide to just once a day. However despite that she presents today with a BUN of 121 and creatinine of 7.05 with persistent symptoms as above. At this point I think patient would need to be initiated with renal replacement therapy which we have been talking about the kidneys for the past year and more so for the last 2 months. When I last saw her in March, I talked to her about placing a vascular access but patient has not decided at that time. Today after discussing with her and her daughter about the need for emergent initiation of renal replacement therapy this, discussing the benefits and the risks of it the patient and daughter agreed to proceed. The risks of the procedure include bleeding, infection, hemodynamic instability including sudden . Immediately we ask for vascular surgeon consult to put in a temporary trialysis catheter. Dr. Seay initially talked with the patient but the patient was a little hesitant at the time. After I talked to the patient and the daughter she finally agreed and so we had to call Dr. Consuelo James because Dr. Seay was already in another case in the operating room. Dr. James was kind enough to put in a trialysis catheter. Currently I am seeing the patient during dialysis treatment using her newly placed right inguinal trialysis catheter. She seems to be comfortable except for occasional cramping. Patient will be monitored very closely by her dialysis nurse at bedside. Dialysis procedure were explained to the patient and she understood. Past Medical History Cardiac Medical History: Reports: Coronary Artery Disease - stents, Hyperlipidemia, Hypertension-primary Pulmonary Medical History: Neurological Medical History: Endocrine Medical History: Reports: Diabetes Mellitus Type 2, Hypothyroidism Renal/ Medical History: Reports: Chronic Kidney Disease Stage V, Hyperkalemia , Hyperphosphatemia, Metabolic Acidosis, Proteinuria, Secondary Hyperparathyroidism GI Medical History: Reports: Gastroesophageal Reflux Disease Musculoskeltal Medical History: Reports: Gout, Other - History of cervical spine fracture Psychiatric Medical History: Reports: Depression - New Hematology Medical History: Reports Anemia of Chronic Kidney Disease Past Surgical History Past Surgical History: Reports: Appendectomy, Coronary Stent, Hysterectomy, Orthopedic Surgery - Toe surgery, Tonsillectomy, Other - Breast biopsy, eye surgery Social History Information Source: Patient, [facility] Office Lives with: Other - Assisted living at [facility] Smoking Status: Never Smoker Frequency of Alcohol Use: None Hx Recreational Drug Use: No Hx Prescription Drug Abuse: No Family History Family History: CAD - Brother and father, CVA - Mother, Malignancy - Sister, prostate cancer her brother, Thyroid Disfunction - Sister and daughter, Other - Dementia and her sister Parental Family History Reviewed: Yes Children Family History Reviewed: Yes Sibling(s) Family History Reviewed.: Yes Medication/Allergy Home Medications: Acetaminophen [Tylenol 325 mg Tablet] 650 mg PO Q8HP PRN 05/28/17 Albuterol Sulfate [Proair HFA] 2 puff IH Q6HP PRN 05/28/17 Amlodipine Besylate [Norvasc 2.5 mg Tablet] 2.5 mg PO QHS 05/28/17 Aspirin [Ecotrin 81 mg EC Tablet] 81 mg PO DAILY 05/28/17 Calcitriol [Rocaltrol] 0.25 mcg PO MOWEFR@1000 05/28/17 Calcium Carbonate [Tums Chewable 500 mg Tab.chew] 500 mg PO BIDLS 05/28/17 Carvedilol [Coreg 12.5 mg Tablet] 12.5 mg PO Q12 05/28/17 Cholecalciferol (Vitamin D3) [Vitamin D3 1000 Unit Tablet] 1,000 unit PO DAILY 05/28/17 Clonidine HCl [Catapres 0.3 mg Tablet] 0.3 mg PO Q8 05/28/17 Doxazosin Mesylate [Cardura] 8 mg PO DAILY 05/28/17 Doxycycline Hyclate 20 mg PO BID 05/28/17 Ezetimibe [Zetia 10 mg Tablet] 10 mg PO DAILY 05/28/17 Ferrous Sulfate [Feosol] 325 mg PO BID 05/28/17 Fluticasone Propionate [Flonase Nasal [place] 50 Mcg/[place] 16 gm] 2 sprays NASL DAILY 05/28/17 Hydralazine HCl 100 mg PO Q8 05/28/17 Ipratropium/Albuterol Sulfate [Duoneb 3 ml Ampul] 3 ml NEB RTQ6HP PRN 05/28/17 Isosorbide Dinitrate [Isordil Titradose 20 Mg Tablet] 20 mg PO Q8 05/28/17 Levothyroxine Sodium [Synthroid] 125 mcg PO QAM 05/28/17 Nystatin [Mycostatin Topical Powder 15 gm] 1 applic TP PRN PRN 05/28/17 Ondansetron [Zofran Odt 4 mg Tablet] 8 mg PO Q8HP PRN 05/28/17 Sennosides [Senna] 8.6 mg PO DAILYP PRN 05/28/17 Sertraline HCl [Zoloft] 25 mg PO DAILY 05/28/17 Simvastatin [Zocor 20 mg Tablet] 20 mg PO QHS 05/28/17 Sodium Bicarbonate [Sodium Bicarbonate 650 mg Tablet] 650 mg PO DAILY 05/28/17 Spironolactone [Aldactone 25 mg Tablet] 25 mg PO DAILY 05/28/17 Torsemide [Demadex 20 mg Tablet] 40 mg PO DAILY 05/28/17 Allergies/Adverse Reactions: codeine [Codeine] Allergy (Mild, Verified 05/07/17 10:28) n/v enalaprilat dihydrate [From Vasotec] Allergy (Mild, Verified 05/07/17 10:28) coughing cephalexin monohydrate [From Keflex] Allergy (Unknown, Verified 05/07/17 10:28) sulfamethoxazole [From Bactrim] Allergy (Unknown, Verified 05/07/17 10:28) trimethoprim [From Bactrim] Allergy (Unknown, Verified 05/07/17 10:28) Review of Systems All systems: reviewed and no additional remarkable complaints except as stated Review of Systems: Constitutional: ABSENT: chills, fever(s), headache(s), weight gain; admits fatigue, weakness, and weight loss Eyes: ABSENT: visual disturbances Ears: ABSENT: hearing changes Cardiovascular: ABSENT: chest pain, dyspnea on exertion, edema, orthropnea, palpitations Respiratory: ABSENT: cough, dyspnea, hemoptysis Gastrointestinal: ABSENT: abdominal pain, constipation, diarrhea, hematemesis, hematochezia; admits nausea, and vomiting Genitourinary: ABSENT: dysuria, hematuria Musculoskeletal: ABSENT: joint swelling Integumentary: ABSENT: rash, wounds Neurological: ABSENT: abnormal gait, abnormal speech, dizziness, focal weakness , numbness, syncope; admits confusion periodically Psychiatric: ABSENT: anxiety, depression Endocrine: ABSENT: cold intolerance, heat intolerance, polydipsia, polyuria Hematologic/Lymphatic: ABSENT: easy bleeding, easy bruising, lymphadenopathy Physical Exam Vital Signs: Temp Pulse Resp BP Pulse Ox 97.5 F 46 L 12 155/57 H 100 05/28/17 11:11 05/28/17 11:11 05/28/17 14:00 05/28/17 13:01 05/28/17 14:00 Vitals now on dialysis: Blood pressure 190/76, heart rate is 57, blood flow rate of 250 mL/min, dialysate flow rate of 500 mL/min. Exam: General appearance: no acute distress, cooperative, well-developed, well- nourished Head exam: PRESENT: atraumatic, normocephalic Eye exam: PRESENT: Conjunctiva slightly pale, EOMI, PERRLA. ABSENT: conjunctival injection, scleral icterus Mouth exam: PRESENT: moist, neck supple, tongue midline Neck exam: PRESENT: full ROM. ABSENT: carotid bruit, JVD, lymphadenopathy, thyromegaly Respiratory exam: PRESENT: clear and diminished to auscultation bilaterally. ABSENT: rales, rhonchi, stridor, wheezes Cardiovascular exam: PRESENT: RRR, +S1, +S2. Grade 2/6 systolic murmur Pulses: PRESENT: normal radial pulses, normal dorsalis pedis pulses GI/Abdominal exam: PRESENT: normal bowel sounds, soft. Mild abdominal discomfort ABSENT: guarding, mass Rectal exam: deferred Extremities exam: PRESENT: full ROM. ABSENT: calf tenderness, pedal edema Musculoskeletal: PRESENT: full ROM. ABSENT: deformity Neurological exam: PRESENT: alert, Awake, Oriented to person, Oriented to place , Oriented to time, reflexes normal, CN II-XII grossly intact. ABSENT: motor sensory deficit Psychiatric exam: PRESENT: appropriate affect, normal mood. ABSENT: homicidal ideation, suicidal ideation Skin exam: PRESENT: intact, dry, warm. Fair skin turgor ABSENT: rash Results Laboratory Results: Laboratory 05/28/17 05/28/17 05/28/17 11:08 11:08 11:08 WBC 6.5 RBC 3.42 L Hgb 11.9 L Hct 34.7 L MCV 101 H MCH 34.8 H MCHC 34.3 RDW 14.1 H Plt Count 234 Seg Neutrophils % 73.4 Lymphocytes % 17.0 Monocytes % 8.3 Eosinophils % 0.9 Basophils % 0.4 Absolute Neutrophils 4.8 Absolute Lymphocytes 1.1 Absolute Monocytes 0.5 Absolute Eosinophils 0.1 Absolute Basophils 0.0 Sodium 138.1 Potassium 3.8 Chloride 95 L Carbon Dioxide 27 Anion Gap 16 BUN 121 H Creatinine 7.05 H Est GFR ( Amer) 7 L Est GFR (Non-Af Amer) 5 L Glucose 181 H Calcium 9.6 Magnesium 3.1 H Total Bilirubin 0.6 Direct Bilirubin 0.6 H Indirect Bilirubin Not Reportable Neonat Total Bilirubin Not Reportable AST 37 H ALT 17 Alkaline Phosphatase 78 Creatine Kinase CK-MB (CK-2) Troponin I Total Protein 7.9 Albumin 4.4 TSH 11.90 H Urine Color Urine Appearance Urine pH Ur Specific [place] Urine Protein Urine Glucose (UA) Urine Ketones Urine Blood Urine Nitrite Urine Bilirubin Urine Urobilinogen Ur Leukocyte Esterase Urine WBC (Auto) Urine RBC (Auto) U Hyaline Cast (Auto) Urine Bacteria (Auto) Squamous Epi Cells Auto Urine Mucus (Auto) Urine Ascorbic Acid 05/28/17 05/28/17 05/28/17 11:08 11:08 12:26 WBC RBC Hgb Hct MCV MCH MCHC RDW Plt Count Seg Neutrophils % Lymphocytes % Monocytes % Eosinophils % Basophils % Absolute Neutrophils Absolute Lymphocytes Absolute Monocytes Absolute Eosinophils Absolute Basophils Sodium Potassium Chloride Carbon Dioxide Anion Gap BUN Creatinine Est GFR ( Amer) Est GFR (Non-Af Amer) Glucose Calcium Magnesium Total Bilirubin Direct Bilirubin Indirect Bilirubin Neonat Total Bilirubin AST ALT Alkaline Phosphatase Creatine Kinase 51 CK-MB (CK-2) 1.74 Troponin I 0.013 Total Protein Albumin TSH Urine Color YELLOW Urine Appearance SLIGHTLY-CLOUDY Urine pH 7.0 Ur Specific [place] 1.009 Urine Protein 100 H Urine Glucose (UA) NEGATIVE Urine Ketones NEGATIVE Urine Blood NEGATIVE Urine Nitrite NEGATIVE Urine Bilirubin NEGATIVE Urine Urobilinogen NEGATIVE Ur Leukocyte Esterase SMALL H Urine WBC (Auto) 14 Urine RBC (Auto) 1 U Hyaline Cast (Auto) 1 Urine Bacteria (Auto) TRACE Squamous Epi Cells Auto 3 Urine Mucus (Auto) RARE Urine Ascorbic Acid NEGATIVE Impressions: Chest X-Ray 05/28/17 11:52 IMPRESSION: Borderline cardiomegaly without CHF. Assessment & Plan - Diagnosis (1) Acute uremia Is this a current diagnosis for this admission?: Yes Plan: Patient presents with acute uremic symptoms including nausea, vomiting, and progressive fatigue and weakness. This is the result of progressively deteriorating kidney function and now would require initiation of renal replacement therapy. As stated above I discussed the need for initiation of renal replacement therapy with the patient and her daughter who agreed to proceed. We are currently doing acute urgent hemodialysis treatment. (2) Chronic kidney disease, stage V requiring chronic dialysis Is this a current diagnosis for this admission?: Yes Plan: This is due to hypertensive nephrosclerosis with known nephrotic range proteinuria now with end-stage renal disease requiring initiation of renal replacement therapy. We will do dialysis today for 2.5 hours, using the patient's trialysis catheter , with 3 potassium bath, blood flow rate of 250 mL per minute, dialysate flow rate of 500 mL per minute, no ultrafiltration since the patient seems to be possibly volume depleted so were actually given make her +500 mL of normal saline at the end of dialysis, no heparin and no Procrit during dialysis. At this point I will hold her torsemide and metolazone. We will arrange for PermCath placement care of Dr. James sometime next week. We will consult shoe planner to arrange outpatient chronic hemodialysis treatment for this patient. We will place PPD and obtain hepatitis panel. I discussed this plan with the patient and her daughter. The daughter is going to find out if patient can be kept at [facility] if she starts on chronic dialysis treatment otherwise to her plan is to her home with 24/7 aid whom they are going to arrange. (3) Hypertensive nephrosclerosis Is this a current diagnosis for this admission?: Yes (4) Anemia in chronic kidney disease (CKD) Is this a current diagnosis for this admission?: Yes (5) HTN (hypertension) Qualifiers: Hypertension type: essential hypertension Qualified Code(s): I10 - Essential (primary) hypertension Is this a current diagnosis for this admission?: Yes Plan: Continue all home blood pressure medications except diuretics for this time. (6) Secondary hyperparathyroidism (of renal origin) Is this a current diagnosis for this admission?: Yes (7) Diabetes mellitus type 2 in nonobese Is this a current diagnosis for this admission?: Yes - Notes Notes: Thank you very much for allowing me to participate in the care of this patient. Discussed the case with Dr. Lozoya and Serina Esquivel in the emergency room. Discussed the case with the patient, the daughter and the nurses taking care of her. - Time Time Spent: Greater than 70 Minutes
[2017-05-28] MEDS ORDERED: (PENDING PHARMACY ID) (Sennosides [Senna] 8.6 MG) PO PRN (17:41)
[2017-05-28] MEDS ORDERED: ALBUTEROL SULFATE HFA (90 MCG/PUFF) 8 GM MDI (1 MDI/ER DISP) IH PRN (17:41)
--- NOTE | 2017-05-28 17:41 | PDOC H&P ---
History of Present Illness Admission Date/PCP: 05/28/17 14:15 MELINA CHAVEZ MD History of Present Illness: SUDHIR HANSON is a 87 year old female known to me with history of chronic kidney disease stage V secondary to hypertensive nephrosclerosis, hypertension, diabetes mellitus type 2, and coronary artery disease who presented to the emergency room today because of weakness and persistent nausea and vomiting. On May 07, 2017 patient presented with symptoms of of nausea and vomiting after eating at [facility]. Patient was evaluated here in the emergency room and she has had abdominal ultrasound and CT scan of the abdomen which was negative. At that time she did have elevated BUN of 112 and creatinine of 5.75. She was sent home with [facility]. Prior to that when I last saw her in the clinic on April 16 she had a BUN of 79 and creatinine of 4.07 with estimated GFR of 13. Patient has been having progressively increasing of her bilateral lower extremity edema for the last 2 months. This requires increasing her diuretics with addition of metolazone. Patient swelling has improved and she was feeling okay for a while. However since May 07 patient admitted that that she has been having periodic nausea and vomiting which has gotten worse for the past week. She admitted feeling dizzy, weak and has decreased appetite. Her daughter reports that the patient has not been eating well no drinking fluids well. Patient denies any decrease in urine output. She denies any chest pains no shortness of breath no cough. She saw Dr. Tirado, her cellophane casting machine repairer on May 14 and has had an echocardiogram and was told that her heart is fine at the time. There was also some report of confusion periodically at [facility] where she resides. On Wednesday she has had another basic metabolic panel which shows a BUN of 127 and creatinine of 6.97. I held her metolazone and decrease her torsemide to just once a day. However despite that she presents today with a BUN of 121 and creatinine of 7.05 with persistent symptoms as above. At this point I think patient would need to be initiated with renal replacement therapy which we have been talking about the kidneys for the past year and more so for the last 2 months. When I last saw her in March, I talked to her about placing a vascular access but patient has not decided at that time. Today after discussing with her and her daughter about the need for emergent initiation of renal replacement therapy this, discussing the benefits and the risks of it the patient and daughter agreed to proceed. The risks of the procedure include bleeding, infection, hemodynamic instability including sudden . Immediately we ask for vascular surgeon consult to put in a temporary trialysis catheter. Dr. Seay initially talked with the patient but the patient was a little hesitant at the time. After I talked to the patient and the daughter she finally agreed and so we had to call Dr. Consuelo James because Dr. Seay was already in another case in the operating room. Dr. James was kind enough to put in a trialysis catheter. Currently I am seeing the patient during dialysis treatment using her newly placed right inguinal trialysis catheter. She seems to be comfortable except for occasional cramping. Patient will be monitored very closely by her dialysis nurse at bedside. Dialysis procedure were explained to the patient and she understood. The patient entered via the ED for urgent dialysis. At the bedside, she received placement of a temporary dialysis catheter in the ED. Currently she has no complaints. She is receiving dialysis. Past Medical History Cardiac Medical History: Reports: Congestive Heart Failure, Coronary Artery Disease - stents, Hyperlipidema, Hypertension Pulmonary Medical History: Neurological Medical History: Endocrine Medical History: Reports: Diabetes Mellitus Type 2, Hypothyroidism Renal/ Medical History: Reports: End Stage Renal Disease GI Medical History: Reports: Gastroesophageal Reflux Disease Musculoskeltal Medical History: Reports: Gout, Other - History of cervical spine fracture Psychiatric Medical History: Reports: Depression - New Past Surgical History Past Surgical History: Reports: Appendectomy, Coronary Stent, Hysterectomy, Orthopedic Surgery - Toe surgery, Tonsillectomy, Other - Breast biopsy, eye surgery Social History Information Source: Patient 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 She [place] [employer]. Lives with: Other - Assisted living at [facility] Smoking Status: Never Smoker Frequency of Alcohol Use: None Hx Recreational Drug Use: No Hx Prescription Drug Abuse: No - Advance Directive Resuscitation Status: Do Not Resuscitate Surrogate healthcare decision maker:: Patient's daughter who lives here in town. Family History Family History: CAD, Hypertension Parental Family History Reviewed: Yes Children Family History Reviewed: Yes Sibling(s) Family History Reviewed.: Yes Medication/Allergy Home Medications: Acetaminophen [Tylenol 325 mg Tablet] 650 mg PO Q8HP PRN 05/28/17 Albuterol Sulfate [Proair HFA] 2 puff IH Q6HP PRN 05/28/17 Amlodipine Besylate [Norvasc 2.5 mg Tablet] 2.5 mg PO QHS 05/28/17 Aspirin [Ecotrin 81 mg EC Tablet] 81 mg PO DAILY 05/28/17 Calcitriol [Rocaltrol] 0.25 mcg PO MOWEFR@1000 05/28/17 Calcium Carbonate [Tums Chewable 500 mg Tab.chew] 500 mg PO BIDLS 05/28/17 Carvedilol [Coreg 12.5 mg Tablet] 12.5 mg PO Q12 05/28/17 Cholecalciferol (Vitamin D3) [Vitamin D3 1000 Unit Tablet] 1,000 unit PO DAILY 05/28/17 Clonidine HCl [Catapres 0.3 mg Tablet] 0.3 mg PO Q8 05/28/17 Doxazosin Mesylate [Cardura] 8 mg PO DAILY 05/28/17 Doxycycline Hyclate 20 mg PO BID 05/28/17 Ezetimibe [Zetia 10 mg Tablet] 10 mg PO DAILY 05/28/17 Ferrous Sulfate [Feosol] 325 mg PO BID 05/28/17 Fluticasone Propionate [Flonase Nasal [place] 50 Mcg/[place] 16 gm] 2 sprays NASL DAILY 05/28/17 Hydralazine HCl 100 mg PO Q8 05/28/17 Ipratropium/Albuterol Sulfate [Duoneb 3 ml Ampul] 3 ml NEB RTQ6HP PRN 05/28/17 Isosorbide Dinitrate [Isordil Titradose 20 Mg Tablet] 20 mg PO Q8 05/28/17 Levothyroxine Sodium [Synthroid] 125 mcg PO QAM 05/28/17 Nystatin [Mycostatin Topical Powder 15 gm] 1 applic TP PRN PRN 05/28/17 Ondansetron [Zofran Odt 4 mg Tablet] 8 mg PO Q8HP PRN 05/28/17 Sennosides [Senna] 8.6 mg PO DAILYP PRN 05/28/17 Sertraline HCl [Zoloft] 25 mg PO DAILY 05/28/17 Simvastatin [Zocor 20 mg Tablet] 20 mg PO QHS 05/28/17 Sodium Bicarbonate [Sodium Bicarbonate 650 mg Tablet] 650 mg PO DAILY 09/08/17 Spironolactone [Aldactone 25 mg Tablet] 25 mg PO DAILY 05/28/17 Torsemide [Demadex 20 mg Tablet] 40 mg PO DAILY 05/28/17 Allergies/Adverse Reactions: codeine [Codeine] Allergy (Mild, Verified 05/07/17 10:28) n/v enalaprilat dihydrate [From Vasotec] Allergy (Mild, Verified 05/07/17 10:28) coughing cephalexin monohydrate [From Keflex] Allergy (Unknown, Verified 05/07/17 10:28) sulfamethoxazole [From Bactrim] Allergy (Unknown, Verified 05/07/17 10:28) trimethoprim [From Bactrim] Allergy (Unknown, Verified 05/07/17 10:28) Review of Systems Review of Systems: Patient denies any chest pain, shortness of breath, or vomiting. She denies fevers, chills, diarrhea, arthritic aches and pains. She denies visual disturbances, dizziness. She denies any blood in the stool, blood in the urine , coughing up blood, throwing up blood. She denies any pain or frequency with urination. She denies abdominal pain. She denies leg pain or swelling. She does admit to nausea for the last 2 weeks. It seems to have gotten a bit worse. She also has had intentional weight loss. However, she cannot quantify exactly how much. She usually ambulates with a walker. No recent falls. She does have constipation and has not had a bowel movement in the last 3 days. She usually has to take a stool softener. Physical Exam Vital Signs: Temp Pulse Resp BP Pulse Ox 98.3 F 58 L 14 191/92 H 100 05/28/17 16:26 05/28/17 16:26 05/28/17 16:26 05/28/17 16:26 05/28/17 16:26 GENERAL: This is a well-developed well-nourished appearing -Senegalese female resting in bed currently receiving dialysis HEENT: Normocephalic atraumatic. Trachea is midline. Sclera are anicteric. Moist mucous membranes. Dentition is fair. HEART: [Regular rate and rhythm. 2/6 systolic ejection murmur. no rubs or gallops.] LUNGS: [Clear to auscultation bilaterally with equal rise and fall of the chest. ] ABDOMEN: [Soft, nontender, nondistended with normoactive bowel sounds] EXTREMETIES: [No clubbing, cyanosis. trace edema. 1+ peripheral pulses bilaterally. Strength is 4 out of 5 throughout.] NEURO: [Awake, alert and oriented 3. Cranial nerves II through XII are specifically intact.] Results Impressions: Chest X-Ray 05/28/17 11:52 IMPRESSION: Borderline cardiomegaly without CHF. Assessment & Plan - Diagnosis (1) Chronic kidney disease, stage V requiring chronic dialysis Is this a current diagnosis for this admission?: Yes Plan: She is status post temporary catheter placement. We appreciate Dr. James. She is currently receiving dialysis at the bedside as per Dr. Choi's orders. Patient will likely need continued dialysis on Wednesday. Discharge planning will be consulted to arrange outpatient dialysis. The patient is currently in assisted living I am certain that this will affect her ability to return there. However we will let discharge planning see what they can do. Repeat labs as per the nephrology service. (2) Secondary hyperparathyroidism (of renal origin) Is this a current diagnosis for this admission?: Yes Plan: Management as per nephrology. (3) Hypothyroid Plan: Continue Synthroid. (4) Diabetes mellitus type 2 in nonobese Is this a current diagnosis for this admission?: Yes Plan: Continue home medications. (5) HTN (hypertension) Qualifiers: Hypertension type: essential hypertension Qualified Code(s): I10 - Essential (primary) hypertension Is this a current diagnosis for this admission?: Yes Plan: Continue carvedilol and clonidine. - Time Time Spent: 30 to 50 Minutes Within: when bed available - Inpatient Certification Medical Necessity: Need Close Monitoring Due to Risk of Patient Decompensation
[2017-05-28] MEDS ORDERED: ALBUTEROL SULFATE HFA (90 MCG/PUFF) 200 PUFF/8.5 GM MDI IH PRN (18:17)
[2017-05-28] MEDS ORDERED: HEPARIN SOD (PORCINE) 1,000 UNIT/ML 10 ML VIAL IV PRN (18:59)
[2017-05-28] MEDS ORDERED: TUBERCULIN,PURIF.PROT.DERIV. 5 TU/0.1 ML TEST 1 ML VIAL ID ONE (19:00)
[2017-05-28] MEDS: HYDRALAZINE HCL 50 MG TABLET PO SCH (21:42)
[2017-05-28] MEDS: CLONIDINE HCL 0.2 MG TABLET PO SCH (21:44)
[2017-05-28] MEDS: AMLODIPINE BESYLATE 2.5 MG TABLET PO SCH (21:44)
[2017-05-28] MEDS: ISOSORBIDE DINITRATE 20 MG TABLET PO SCH (21:44)
[2017-05-28] MEDS: CARVEDILOL 12.5 MG TABLET PO SCH (21:45)
[2017-05-28] MEDS ORDERED: (PENDING PHARMACY ID) (Hydralazine Hcl [Hydralazine Hcl] 100 MG) PO SCH (22:00)
[2017-05-28] MEDS ORDERED: (PENDING PHARMACY ID) (Clonidine Hcl [Catapres 0.3 Mg Tablet] 0.3 MG) PO SCH (22:00)
[2017-05-29 04:55] LABS: ABSOLUTE EOSINOPHILS # (AUTO) 0.1 10^3/uL (0.0-0.6); ABSOLUTE LYMPHOCYTES (AUTO) 1.2 10^3/uL (0.5-4.7); ABSOLUTE MONOCYTES (AUTO) 0.8 10^3/uL (0.1-1.4); ABSOLUTE NEUT (AUTO) 3.7 10^3/uL (1.7-8.2); BASOPHILS % (AUTO) 0.3 % (0-2); EOSINOPHILS % (AUTO) 1.2 % (0-6); HEMATOCRIT 29.8 % (36.0-47.0); HEMOGLOBIN 10.3 g/dL (12.0-15.5); HGB HCT DIFFERENCE 1.1; MEAN CORPUSCULAR HEMOGLOBIN 34.7 pg (27.0-33.4); MEAN CORPUSCULAR HGB CONC 34.4 g/dL (32.0-36.0); MEAN CORPUSCULAR VOLUME 101 fl (80-97); MONOCYTES % (AUTO) 13.9 % (3-13); RED BLOOD COUNT 2.96 10^6/uL (3.72-5.28); RED CELL DISTRIBUTION WIDTH 13.7 % (11.5-14.0); SEGMENTED NEUTROPHILS % (AUTO) 63.6 % (42-78); WHITE BLOOD COUNT 5.8 10^3/uL (4.0-10.5)
[2017-05-29 05:06] LABS: ANION GAP 10 (5-19); CALCIUM 8.5 mg/dL (8.4-10.2); CARBON DIOXIDE 30 mmol/L (22-30); CHLORIDE 100 mmol/L (98-107); GLUCOSE 99 mg/dL (75-110); MAGNESIUM 2.2 mg/dL (1.6-2.3); PHOSPHORUS 3.6 mg/dL (2.5-4.5); POTASSIUM 4.1 mmol/L (3.6-5.0); SODIUM 139.6 mmol/L (137-145)
[2017-05-29 06:13] LABS: FOLATE 7.14 ng/mL (>2.76)
[2017-05-29 06:29] LABS: BLOOD UREA NITROGEN 46 mg/dL (7-20)
[2017-05-29] MEDS: CLONIDINE HCL 0.2 MG TABLET PO SCH ×2 (06:30→15:06)
[2017-05-29] MEDS: HYDRALAZINE HCL 50 MG TABLET PO SCH ×2 (06:30→15:06)
[2017-05-29] MEDS: ISOSORBIDE DINITRATE 20 MG TABLET PO SCH ×3 (06:30→22:56)
[2017-05-29] MEDS: LEVOTHYROXINE SODIUM 0.1 MG TABLET PO SCH (07:47)
[2017-05-29] MEDS: LEVOTHYROXINE SODIUM 0.025 MG TABLET PO SCH (07:47)
[2017-05-29] MEDS ORDERED: (PENDING PHARMACY ID) (Levothyroxine Sodium [Synthroid] 125 MCG) PO SCH (08:00)
[2017-05-29] MEDS ORDERED: (PENDING PHARMACY ID) (Doxazosin Mesylate [Cardura] 8 MG) PO SCH (10:00)
[2017-05-29] MEDS: ASPIRIN 81 MG TABLET, ENT COATED PO SCH (10:26)
[2017-05-29] MEDS: CARVEDILOL 12.5 MG TABLET PO SCH ×2 (10:26→22:56)
[2017-05-29] MEDS: DOXAZOSIN MESYLATE 4 MG TABLET PO SCH (10:26)
--- NOTE | 2017-05-29 17:29 | PDOC PROGRESS REPORT ---
Subjective Progress Note for:: 05/29/17 Subjective:: This is a follow-up visit for end-stage renal disease requiring hemodialysis. Feels well this morning. No acute events overnight. Physical Exam Vital Signs: Temp Pulse Resp BP Pulse Ox 98.1 F 59 L 20 148/54 H 100 05/29/17 12:06 05/29/17 12:06 05/29/17 12:06 05/29/17 12:06 05/29/17 12:06 Intake & Output 05/28/17 05/29/17 05/30/17 06:59 06:59 06:59 Intake Total 950 Output Total 900 Balance 50 Weight 62.3 kg GENERAL: This is a well-developed well-nourished appearing -Dominican female resting in bed currently receiving dialysis HEART: Regular rate and rhythm. 2/6 systolic ejection murmur. no rubs or gallops. LUNGS: Clear to auscultation bilaterally with equal rise and fall of the chest. ABDOMEN: Soft, nontender, nondistended with normoactive bowel sounds EXTREMETIES: No clubbing, cyanosis, edema. 1+ peripheral pulses bilaterally. Strength is 4 out of 5 throughout. NEURO: Awake, alert and oriented 3. Cranial nerves II through XII are specifically intact.No clubbing, cyanosis. edema. 1+ peripheral pulses bilaterally. Strength is 4 out of 5 throughout. Results Laboratory Results: 05/29/17 03:58 05/29/17 03:58 05/29/17 05/29/17 03:58 03:58 WBC 5.8 RBC 2.96 L Hgb 10.3 L Hct 29.8 L MCV 101 H MCH 34.7 H MCHC 34.4 RDW 13.7 Plt Count 197 Seg Neutrophils % 63.6 Lymphocytes % 21.0 Monocytes % 13.9 H Eosinophils % 1.2 Basophils % 0.3 Absolute Neutrophils 3.7 Absolute Lymphocytes 1.2 Absolute Monocytes 0.8 Absolute Eosinophils 0.1 Absolute Basophils 0.0 Retic Count (auto) 1.26 Absolute Retic 0.037 Sodium 139.6 Potassium 4.1 Chloride 100 Carbon Dioxide 30 Anion Gap 10 BUN 46 H D Creatinine 3.80 H Est GFR ( Amer) 14 L Est GFR (Non-Af Amer) 11 L Glucose 99 Calcium 8.5 Phosphorus 3.6 Magnesium 2.2 Iron 33.9 L TIBC 221 L % Saturation 15 Ferritin 332.00 H Vitamin B12 642.0 Folate 7.14 Impressions: Chest X-Ray 05/28/17 11:52 IMPRESSION: Borderline cardiomegaly without CHF. Assessment & Plan - Diagnosis (1) Chronic kidney disease, stage V requiring chronic dialysis Is this a current diagnosis for this admission?: Yes Plan: She is status post temporary catheter placement. Patient's labs look improved today. Creatinine is down to 3. Discharge planning will be consulted to arrange outpatient dialysis. The patient is currently in assisted living I am certain that this will affect her ability to return there. However we will let discharge planning see what they can do. Repeat labs as per the nephrology service. (2) Secondary hyperparathyroidism (of renal origin) Is this a current diagnosis for this admission?: Yes Plan: Management as per nephrology. (3) Hypothyroid Plan: Continue Synthroid. (4) Diabetes mellitus type 2 in nonobese Is this a current diagnosis for this admission?: Yes Plan: Continue home medications. (5) HTN (hypertension) Qualifiers: Hypertension type: essential hypertension Qualified Code(s): I10 - Essential (primary) hypertension Is this a current diagnosis for this admission?: Yes Plan: Continue carvedilol and clonidine. - Time Time Spent with patient: 15-24 minutes Anticipated discharge: Other - Inpatient Certification Medical Necessity: Need Close Monitoring Due to Risk of Patient Decompensation
[2017-05-29] MEDS: AMLODIPINE BESYLATE 2.5 MG TABLET PO SCH (22:55)
[2017-05-30] MEDS: HYDRALAZINE HCL 50 MG TABLET PO SCH ×4 (01:26→21:58)
[2017-05-30] MEDS: CLONIDINE HCL 0.2 MG TABLET PO SCH ×4 (01:26→21:58)
[2017-05-30] MEDS: ISOSORBIDE DINITRATE 20 MG TABLET PO SCH ×3 (06:23→21:58)
[2017-05-30] MEDS: LEVOTHYROXINE SODIUM 0.025 MG TABLET PO SCH (08:12)
[2017-05-30] MEDS: LEVOTHYROXINE SODIUM 0.1 MG TABLET PO SCH (08:12)
[2017-05-30] MEDS: CARVEDILOL 12.5 MG TABLET PO SCH ×2 (10:28→21:58)
[2017-05-30] MEDS: DOXAZOSIN MESYLATE 4 MG TABLET PO SCH (10:29)
[2017-05-30] MEDS: ASPIRIN 81 MG TABLET, ENT COATED PO SCH (10:29)
--- NOTE | 2017-05-30 13:59 | PDOC PROGRESS REPORT ---
Subjective Progress Note for:: 05/30/17 Subjective:: This is a follow-up visit for end-stage renal disease requiring hemodialysis. Feels well this morning. No acute events overnight. Physical Exam Vital Signs: Temp Pulse Resp BP Pulse Ox 98.0 F 55 L 20 156/52 H 100 05/30/17 11:41 05/30/17 11:41 05/30/17 11:41 05/30/17 11:41 05/30/17 11:41 Intake & Output 05/29/17 05/30/17 05/31/17 06:59 06:59 06:59 Intake Total 950 725 Output Total 900 650 Balance 50 75 Weight 62.3 kg 65.1 kg GENERAL: This is a well-developed well-nourished appearing -[place]uxembour[place] female resting in bed currently in no acute distress. HEART: Regular rate and rhythm. 2/6 systolic ejection murmur. no rubs or gallops. LUNGS: Clear to auscultation bilaterally with equal rise and fall of the chest. ABDOMEN: Soft, nontender, nondistended with normoactive bowel sounds EXTREMETIES: No clubbing, cyanosis, edema. 1+ peripheral pulses bilaterally. Strength is 4 out of 5 throughout. NEURO: Awake, alert and oriented 3. Cranial nerves II through XII are specifically intact.No clubbing, cyanosis. edema. Results Laboratory Results: 05/29/17 03:58 05/29/17 03:58 Impressions: Chest X-Ray 05/28/17 11:52 IMPRESSION: Borderline cardiomegaly without CHF. Assessment & Plan - Diagnosis (1) Chronic kidney disease, stage V requiring chronic dialysis Is this a current diagnosis for this admission?: Yes Plan: She is status post temporary catheter placement. Patient's labs look improved yesterday. Creatinine is down to 3. Discharge planning will be consulted to arrange outpatient dialysis. The patient is currently in assisted living and I am certain that this will affect her ability to return there. However we will let discharge planning see what they can do. Repeat labs as per the nephrology service. (2) Secondary hyperparathyroidism (of renal origin) Is this a current diagnosis for this admission?: Yes Plan: Management as per nephrology. (3) Hypothyroid Plan: Continue Synthroid. (4) Diabetes mellitus type 2 in nonobese Is this a current diagnosis for this admission?: Yes Plan: Continue home medications. (5) HTN (hypertension) Qualifiers: Hypertension type: essential hypertension Qualified Code(s): I10 - Essential (primary) hypertension Is this a current diagnosis for this admission?: Yes Plan: Continue carvedilol and clonidine. - Time Time Spent with patient: 15-24 minutes - Inpatient Certification Medical Necessity: Need Close Monitoring Due to Risk of Patient Decompensation
[2017-05-30] MEDS: SENNOSIDES/DOCUSATE 8.6-50 MG 1 EACH TABLET PO SCH (17:21)
[2017-05-30] MEDS: AMLODIPINE BESYLATE 2.5 MG TABLET PO SCH (21:57)
[2017-05-31] MEDS ORDERED: HEPARIN SOD (PORCINE) 1,000 UNIT/ML 10 ML VIAL IV PRN (05:00)
[2017-05-31] MEDS ORDERED: NORMAL SALINE 1000 ML 1,000 ML IV PRN (05:00)
[2017-05-31] MEDS ORDERED: IRON SUCROSE COMPLEX INJ/PF 100 MG/5 ML SDV IV PRN (05:00)
[2017-05-31] MEDS: HYDRALAZINE HCL 50 MG TABLET PO SCH ×3 (05:14→22:22)
[2017-05-31] MEDS: CLONIDINE HCL 0.2 MG TABLET PO SCH ×3 (05:15→22:23)
[2017-05-31] MEDS: ISOSORBIDE DINITRATE 20 MG TABLET PO SCH ×3 (05:15→22:23)
[2017-05-31 06:28] LABS: ABSOLUTE EOSINOPHILS # (AUTO) 0.1 10^3/uL (0.0-0.6); ABSOLUTE LYMPHOCYTES (AUTO) 1.7 10^3/uL (0.5-4.7); ABSOLUTE MONOCYTES (AUTO) 0.9 10^3/uL (0.1-1.4); ABSOLUTE NEUT (AUTO) 3.9 10^3/uL (1.7-8.2); BASOPHILS % (AUTO) 0.4 % (0-2); EOSINOPHILS % (AUTO) 2.1 % (0-6); HEMATOCRIT 29.6 % (36.0-47.0); HEMOGLOBIN 9.9 g/dL (12.0-15.5); HGB HCT DIFFERENCE 0.1; LYMPHOCYTES % (AUTO) 25.7 % (13-45); MEAN CORPUSCULAR HEMOGLOBIN 34.1 pg (27.0-33.4); MEAN CORPUSCULAR HGB CONC 33.5 g/dL (32.0-36.0); MEAN CORPUSCULAR VOLUME 102 fl (80-97); MONOCYTES % (AUTO) 13.1 % (3-13); RED BLOOD COUNT 2.91 10^6/uL (3.72-5.28); RED CELL DISTRIBUTION WIDTH 13.7 % (11.5-14.0); SEGMENTED NEUTROPHILS % (AUTO) 58.7 % (42-78); WHITE BLOOD COUNT 6.6 10^3/uL (4.0-10.5)
[2017-05-31 06:38] LABS: ANION GAP 14 (5-19); BLOOD UREA NITROGEN 63 mg/dL (7-20); CALCIUM 8.6 mg/dL (8.4-10.2); CARBON DIOXIDE 24 mmol/L (22-30); CHLORIDE 100 mmol/L (98-107); CREATININE RESULT 4.76 mg/dL (0.52-1.25); GLUCOSE 111 mg/dL (75-110); MAGNESIUM 2.5 mg/dL (1.6-2.3); POTASSIUM 4.2 mmol/L (3.6-5.0); SODIUM 138.2 mmol/L (137-145)
[2017-05-31 07:10] LABS: PTH INTACT 137 pg/mL (15-65); TRANSFERRIN 146 mg/dL (200-370)
[2017-05-31] MEDS: LEVOTHYROXINE SODIUM 0.025 MG TABLET PO SCH (08:07)
[2017-05-31] MEDS: LEVOTHYROXINE SODIUM 0.1 MG TABLET PO SCH (08:08)
[2017-05-31 09:37] LABS: HEPATITIS C QUANTITATION HCV Not Detected IU/mL (.)
[2017-05-31] MEDS: ASPIRIN 81 MG TABLET, ENT COATED PO SCH (12:21)
[2017-05-31] MEDS: CARVEDILOL 12.5 MG TABLET PO SCH ×2 (12:21→22:24)
[2017-05-31] MEDS: SENNOSIDES/DOCUSATE 8.6-50 MG 1 EACH TABLET PO SCH ×2 (12:21→17:09)
[2017-05-31] MEDS: DOXAZOSIN MESYLATE 4 MG TABLET PO SCH (12:22)
--- NOTE | 2017-05-31 15:42 | Operative Report ---
Operative Report DATE OF SURGERY: 05/28/17 PREOPERATIVE DIAGNOSIS: End-stage renal disease on hemodialysis POSTOPERATIVE DIAGNOSIS: End-stage renal disease on hemodialysis OPERATION: 1. Ultrasound evaluation of the right common femoral vein. 2. Insertion of temporary hemodialysis catheter via right femoral vein under real- time ultrasound guidance.. SURGEON: FABIANO SINGLETON LABOR STANDARDS DIRECTOR: None ANESTHESIA: Local TISSUE REMOVED OR ALTERED: Not applicable. COMPLICATIONS: None ESTIMATED BLOOD LOSS: 5 mL. INTRAOPERATIVE FINDINGS: Of relatively small vessels, the common femoral a little over 1 cm. Ultrasound of great value and safe axis. Satisfactory and safe access with easy egress of blood and ingress of heparinized solution through all 3 ports. PROCEDURE: After obtaining informed consent, the patient was positioned supine at bedside. The[right groin] and adjacent areas were prepared with chlorhexidine and draped out with sterile linen. After the universal timeout the procedure commenced. A steriley sheathed ultrasound probe was used to evaluate the [right femoral vein]. Local anesthesia was infiltrated adjacent to the probe. Access into the left femoral was accomplished using a micropuncture needle followed, by micropuncture wire and then with a micropuncture catheter. This was followed by introduction of a 0.035 guidewire, the skin opening was enlarged slightly, serially larger dilators were now placed followed by introduction of a triaysis catheter. All of these transitions were smooth. Each lumen was aspirated of blood and irrigated with heparinized solution. The catheter was now sutured to the skin using 3-0 nylon. A Bio A patch was now applied, followed by sterile dressings. Caps were placed on the end of the each of the lumens. The procedure concluded. Copies dictated operative report to Dr. Fabiano James MD.
--- NOTE | 2017-05-31 16:32 | PDOC PROGRESS REPORT ---
Subjective Progress Note for:: 05/31/17 Subjective:: This is a follow-up visit for end-stage renal disease requiring hemodialysis. Feels well this morning. No acute events overnight. She is just finishing up dialysis. Physical Exam Vital Signs: Temp Pulse Resp BP Pulse Ox 97.6 F 56 L 16 160/65 H 100 05/31/17 12:19 05/31/17 14:00 05/31/17 12:19 05/31/17 12:19 05/31/17 12:19 Intake & Output 05/30/17 05/31/17 06/01/17 06:59 06:59 06:59 Intake Total 725 435 Output Total 650 1300 0 Balance 75 -865 0 Weight 65.1 kg 64.4 kg GENERAL: This is a well-developed well-nourished appearing -Algerian female resting in bed currently finishing dialysis HEART: Regular rate and rhythm. 2/6 systolic ejection murmur. no rubs or gallops. LUNGS: Clear to auscultation bilaterally with equal rise and fall of the chest. ABDOMEN: Soft, nontender, nondistended with normoactive bowel sounds EXTREMETIES: No clubbing, cyanosis, edema. 1+ peripheral pulses bilaterally. Strength is 4 out of 5 throughout. NEURO: Awake, alert and oriented 3. Cranial nerves II through XII are specifically intact.No clubbing, cyanosis. edema. Results Laboratory Results: 05/31/17 05:21 05/31/17 05:21 05/29/17 05/31/17 05/31/17 03:58 05:21 05:21 WBC 6.6 RBC 2.91 L Hgb 9.9 L Hct 29.6 L MCV 102 H MCH 34.1 H MCHC 33.5 RDW 13.7 Plt Count 179 Seg Neutrophils % 58.7 Lymphocytes % 25.7 Monocytes % 13.1 H Eosinophils % 2.1 Basophils % 0.4 Absolute Neutrophils 3.9 Absolute Lymphocytes 1.7 Absolute Monocytes 0.9 Absolute Eosinophils 0.1 Absolute Basophils 0.0 Sodium 138.2 Potassium 4.2 Chloride 100 Carbon Dioxide 24 Anion Gap 14 BUN 63 H Creatinine 4.76 H Est GFR ( Amer) 10 L Est GFR (Non-Af Amer) 9 L Glucose 111 H Calcium 8.6 Magnesium 2.5 H Transferrin 146 L PTH Intact 137 H Impressions: Chest X-Ray 05/28/17 11:52 IMPRESSION: Borderline cardiomegaly without CHF. Assessment & Plan - Diagnosis (1) Chronic kidney disease, stage V requiring chronic dialysis Is this a current diagnosis for this admission?: Yes Plan: She is status post temporary catheter placement. Patient's labs look improved. Discharge planning consulted to arrange outpatient dialysis. The patient is currently in assisted living and I am certain that this will affect her ability to return there. However we will let discharge planning see what they can do. Patient will go to SNF vs home, otherwise. Repeat labs as per the nephrology service. (2) Secondary hyperparathyroidism (of renal origin) Is this a current diagnosis for this admission?: Yes Plan: Management as per nephrology. (3) Hypothyroid Plan: Continue Synthroid. (4) Diabetes mellitus type 2 in nonobese Is this a current diagnosis for this admission?: Yes Plan: Continue home medications. (5) HTN (hypertension) Qualifiers: Hypertension type: essential hypertension Qualified Code(s): I10 - Essential (primary) hypertension Is this a current diagnosis for this admission?: Yes Plan: Continue carvedilol and clonidine. - Time Time Spent with patient: 15-24 minutes - Inpatient Certification Based on my medical assessment, after consideration of the patient's comorbidities, presenting symptoms, or acuity I expect that the services needed warrant INPATIENT care.: Yes Medical Necessity: Significant Comorbidiites Make Outpatient Treatment Too Risky
--- NOTE | 2017-05-31 21:13 | PDOC PROGRESS REPORT ---
Subjective Progress Note for:: 05/31/17 Subjective:: This patient during dialysis this morning at around 8:25 AM. Patient is clinically looking better compared to admission on Wednesday. Her appetite is still not back but at least she is eating about 40% of her meal. She tells me she is feeling fine and she denies any nausea nor vomiting although her stomach is queasy this morning. She denies any chest pains no shortness of breath. She seems to be tolerating dialysis when I saw her without any problems. Physical Exam Vital Signs: Temp Pulse Resp BP Pulse Ox 97.7 F 53 L 17 181/63 H 99 05/31/17 16:33 05/31/17 16:33 05/31/17 16:33 05/31/17 16:33 05/31/17 16:33 Intake & Output 05/30/17 05/31/17 06/01/17 06:59 06:59 06:59 Intake Total 725 435 Output Total 650 1300 0 Balance 75 -865 0 Weight 65.1 kg 64.4 kg Vital signs during dialysis when I saw her: Blood pressure 162/66, heart rate 47 , blood flow rate of 250 mL/min. Dialysate flow rate of 500 mL/min. Exam: General appearance: PRESENT: no acute distress, cooperative, well-developed, well-nourished Head exam: PRESENT: atraumatic, normocephalic Eye exam: PRESENT: conjunctiva pale, PERRLA. ABSENT: scleral icterus Neck exam: ABSENT: JVD Respiratory exam: PRESENT: Diminished breath sounds. ABSENT: crackles, rales, rhonchi, unlabored, wheezes Cardiovascular exam: PRESENT: Regular rate rhythm -+S1, +S2. ABSENT: diastolic murmur, systolic murmur GI/Abdominal exam: PRESENT: normal bowel sounds, soft. ABSENT: guarding, mass, tenderness Extremities exam: ABSENT: No edema Neurological exam: PRESENT: alert, awake, oriented to person, place and time. Skin exam: PRESENT: dry, warm, Results Laboratory Results: 05/31/17 05:21 05/31/17 05:21 05/29/17 05/31/17 05/31/17 03:58 05:21 05:21 WBC 6.6 RBC 2.91 L Hgb 9.9 L Hct 29.6 L MCV 102 H MCH 34.1 H MCHC 33.5 RDW 13.7 Plt Count 179 Seg Neutrophils % 58.7 Lymphocytes % 25.7 Monocytes % 13.1 H Eosinophils % 2.1 Basophils % 0.4 Absolute Neutrophils 3.9 Absolute Lymphocytes 1.7 Absolute Monocytes 0.9 Absolute Eosinophils 0.1 Absolute Basophils 0.0 Sodium 138.2 Potassium 4.2 Chloride 100 Carbon Dioxide 24 Anion Gap 14 BUN 63 H Creatinine 4.76 H Est GFR ( Amer) 10 L Est GFR (Non-Af Amer) 9 L Glucose 111 H Calcium 8.6 Magnesium 2.5 H Transferrin 146 L PTH Intact 137 H Impressions: Chest X-Ray 05/28/17 11:52 IMPRESSION: Borderline cardiomegaly without CHF. Assessment & Plan - Diagnosis (1) Acute uremia Is this a current diagnosis for this admission?: Yes Plan: Improving with initiation of hemodialysis. (2) Chronic kidney disease, stage V requiring chronic dialysis Is this a current diagnosis for this admission?: Yes Plan: This is due to hypertensive nephrosclerosis with known nephrotic range proteinuria now with end-stage renal disease requiring initiation of renal replacement therapy. We did dialysis today for 2.5 hours, using the patient's trialysis catheter, with 3 potassium bath, blood flow rate of 250 mL per minute, dialysate flow rate of 500 mL per minute, minimal ultrafiltration, no heparin and no Procrit during dialysis. She will be given Venofer intravenously. At this point I will hold her torsemide and metolazone. We will arrange for PermCath placement care of Dr. James . I talked to Dr. James this morning and he will plan to put a PermCath tomorrow. We will consult menu planner to arrange outpatient chronic hemodialysis treatment for this patient. The daughter is going to find out if patient can be kept at [facility] if she starts on chronic dialysis treatment otherwise to her plan is to her home with 12/04 aide whom they are going to arrange. (3) Hypertensive nephrosclerosis Is this a current diagnosis for this admission?: Yes (4) Anemia in chronic kidney disease (CKD) Is this a current diagnosis for this admission?: Yes Plan: Venofer IV will be given during dialysis. We will also initiate Procrit next treatment. (5) HTN (hypertension) Qualifiers: Hypertension type: essential hypertension Qualified Code(s): I10 - Essential (primary) hypertension Is this a current diagnosis for this admission?: Yes Plan: Continue all home blood pressure medications except diuretics for this time. (6) Secondary hyperparathyroidism (of renal origin) Is this a current diagnosis for this admission?: Yes (7) Diabetes mellitus type 2 in nonobese Is this a current diagnosis for this admission?: Yes - Time Time with patient: 15-25 minutes
[2017-05-31] MEDS: AMLODIPINE BESYLATE 2.5 MG TABLET PO SCH (22:22)
[2017-06-01] MEDS ORDERED: DEXTROSE 50%-WATER 25 GM/50 ML DISP.SYRIN IV PRN ×2 (03:49)
[2017-06-01] MEDS ORDERED: GLUCAGON,HUMAN RECOMB 1 MG INJ SUBCUT PRN (03:49)
[2017-06-01] MEDS ORDERED: DEXTROSE 40% GEL 15 GM TUBE PO PRN ×2 (03:49)
[2017-06-01] MEDS: CLONIDINE HCL 0.2 MG TABLET PO SCH ×3 (05:43→22:13)
[2017-06-01] MEDS: HYDRALAZINE HCL 50 MG TABLET PO SCH ×3 (05:44→22:14)
[2017-06-01] MEDS: ISOSORBIDE DINITRATE 20 MG TABLET PO SCH ×3 (05:44→22:13)
[2017-06-01] MEDS ORDERED: ONDANSETRON HCL INJ/PF 4 MG/2 ML SDV ONE (07:48)
[2017-06-01] MEDS ORDERED: GLYCOPYRROLATE INJ 0.4 MG/2 ML VIAL ONE (07:48)
[2017-06-01] MEDS: LEVOTHYROXINE SODIUM 0.1 MG TABLET PO SCH (07:54)
[2017-06-01] MEDS: LEVOTHYROXINE SODIUM 0.025 MG TABLET PO SCH (07:54)
[2017-06-01] MEDS: DOXAZOSIN MESYLATE 4 MG TABLET PO SCH (09:41)
[2017-06-01] MEDS: SENNOSIDES/DOCUSATE 8.6-50 MG 1 EACH TABLET PO SCH ×2 (09:44→18:38)
[2017-06-01] MEDS: CARVEDILOL 12.5 MG TABLET PO SCH ×2 (09:44→22:47)
[2017-06-01] MEDS ORDERED: LIDOCAINE 0.5% INJ-PF (5 MG/ML) 50 ML SDV ONE (10:05)
[2017-06-01] MEDS ORDERED: BUPIVACAINE HCL 0.25 % INJ/PF (2.5 MG/1 ML) 30 ML VIAL ONE (10:05)
[2017-06-01] MEDS ORDERED: BACITRACIN INJ 50,000 UNIT VIAL ONE (10:06)
[2017-06-01] MEDS ORDERED: FENTANYL CITRATE INJ/PF 100 MCG/2 ML AMPUL ONE (11:42)
[2017-06-01] MEDS ORDERED: MIDAZOLAM 2 MG/2 ML INJ ONE (11:42)
[2017-06-01] MEDS ORDERED: PROPOFOL INJ 200 MG/20 ML VIAL IV ONE (11:43)
[2017-06-01] MEDS ORDERED: VANCOMYCIN HCL 500 MG in DEXTROSE 5%-WATER 100 ML IV PRN (12:30)
[2017-06-01] MEDS ORDERED: DIPHENHYDRAMINE HCL 50 MG/ML VIAL IV PRN (12:52)
[2017-06-01] MEDS ORDERED: FENTANYL CITRATE INJ/PF 100 MCG/2 ML AMPUL IV PRN ×3 (12:52)
[2017-06-01] MEDS ORDERED: PROMETHAZINE HCL INJ 25 MG/1 ML VIAL IV PRN ×2 (12:52)
[2017-06-01] MEDS ORDERED: MEPERIDINE HCL/PF INJ 25 MG/1 ML DISP.SYRIN IV PRN (12:52)
--- NOTE | 2017-06-01 13:17 | Operative Report ---
Operative Report DATE OF SURGERY: 06/01/17 PREOPERATIVE DIAGNOSIS: 1. end-stage renal disease on hemodialysis. 2. Diabetes mellitus type 2. 3. Hypertension. POSTOPERATIVE DIAGNOSIS: End-stage renal disease on hemodialysis OPERATION: 1. Ultrasound evaluation of the right internal jugular vein. 2. Insertion of firm catheter via right internal jugular vein under real-time ultrasound guidance. 3. Angiogram and interpretation.. SURGEON: FABIANO SINGLETON GENERAL I FARMWORKER: None ANESTHESIA: LMAC TISSUE REMOVED OR ALTERED: Not applicable. COMPLICATIONS: None ESTIMATED BLOOD LOSS: 5 mL. INTRAOPERATIVE FINDINGS: Of a relatively small right internal jugular vein. Ultrasound of great efficacy and see access. Satisfactory placement of the tip down in a relatively small right atrium. Easy egress of blood and ingress of heparinized solution through both ports. The apex of the lung looks fine on postprocedure spot film. PROCEDURE: After obtaining informed consent, the patient was taken to the operating room and positioned supine. The [right neck] and chest were prepared with chlorhexidine and draped out with sterile linen. After the " universal timeout ", in which it was verified that the patient continued to receive antibiotic, the procedure commenced. A steriley sheathed ultrasound probe was used to evaluate the [right internal jugular] vein. Local anesthesia was infiltrated adjacent to the probe. Access into the [right internal jugular] vein was obtained using a micropuncture needle, followed by micropuncture wire and then a micropuncture catheter. This was followed by introduction of a 0.035 guidewire the tip of which was placed down into the inferior vena cava . A 23 cm long PermCath was now positioned over the chest and an exit site marked and locally anesthetized ,the catheter was placed between the 2 incisions. Proximally, the catheter was now positioned using a peel-away sheath, after dilation. Easy ingress of heparinized solution and egress of blood obtained through both ports. A completion angiogram was done by injecting contrast. The findings were as dictated. The neck incision was now closed using interrupted 3-0 PDS to the subcutaneous tissues, the catheter was anchored at the exit site using 3-0 PDS. A Biopatch device was now placed adjacent to the catheter. Dressings were applied and the procedure concluded. Copies of the dictated operative report for Dr. Fabiano James MD.concluded. Copies of the dictated operative report for Dr. Fabiano James MD.
[2017-06-01] MEDS: ASPIRIN 81 MG TABLET, ENT COATED PO SCH (14:40)
[2017-06-01] MEDS ORDERED: OXYCODONE-ACETAMINOPHEN 5-325 MG TABLET ONE (14:42)
[2017-06-01] MEDS ORDERED: OXYCODONE-ACETAMINOPHEN 5-325 MG TABLET PO PRN (14:55)
[2017-06-01] MEDS ORDERED: ACETAMINOPHEN 325 MG TABLET PO PRN (15:30)
--- NOTE | 2017-06-01 15:33 | RADIOLOGY REPORT (SQ) ---
EXAM DESCRIPTION: FLUORO/CV PLACEMENT COMPLETED DATE/TIME: 06/01/2017 1:36 pm REASON FOR STUDY: PERMCATH RT SIDE COMPARISON: AP chest 05/28/2017 FLUOROSCOPY TIME: 0.7 minutes 3 C-arm images saved to PACS. TECHNIQUE: Intra-operative images acquired during surgical procedure to evaluate progress. NUMBER OF IMAGES: Cine fluoroscopic images. LIMITATIONS: None. FINDINGS: Intra procedural imaging and fluoro during placement of a right-sided central venous dialy sis catheter by Dr. James. Please see the operative report IMPRESSION: Intra procedural imaging and fluoro COMMENT: Quality ID [id number]: Final reports for procedures using fluoroscopy that document radiation exp osure indices, or exposure time and number of fluorographic images (if radiation exposure indices are not available) Please consult full operative report of the attending physician for description of the procedure. TECHNICAL DOCUMENTATION: JOB ID: [id number] [email or web address]- All Rights Reserved
--- NOTE | 2017-06-01 15:48 | PDOC PROGRESS REPORT ---
Subjective Progress Note for:: 06/01/17 Subjective:: Patient denies any complaints. She is to go for PermCath for dialysis later today. Physical Exam Vital Signs: Temp Pulse Resp BP Pulse Ox 97.3 F 59 L 15 173/58 H 99 06/01/17 14:32 06/01/17 14:32 06/01/17 14:32 06/01/17 14:32 06/01/17 14:32 Intake & Output 05/31/17 06/01/17 06/02/17 06:59 06:59 06:59 Intake Total 435 360 Output Total 1300 300 210 Balance -865 -300 150 Weight 64.4 kg 64.4 kg General appearance: PRESENT: no acute distress Eye exam: PRESENT: conjunctiva pink. ABSENT: scleral icterus Mouth exam: PRESENT: moist, tongue midline Neck exam: ABSENT: JVD Respiratory exam: PRESENT: clear to auscultation suki. ABSENT: rales, rhonchi, wheezes Cardiovascular exam: PRESENT: RRR. ABSENT: diastolic murmur, rubs, systolic murmur GI/Abdominal exam: PRESENT: normal bowel sounds, soft. ABSENT: distended, guarding, mass, organolmegaly, rebound, tenderness Extremities exam: ABSENT: calf tenderness, clubbing, pedal edema Neurological exam: PRESENT: alert, awake, oriented to person, oriented to place , oriented to time, oriented to situation, CN II-XII grossly intact. ABSENT: motor sensory deficit Psychiatric exam: PRESENT: appropriate affect Skin exam: PRESENT: dry, intact, warm. ABSENT: cyanosis, rash Results Laboratory Results: 05/31/17 05:21 05/31/17 05:21 Impressions: Chest X-Ray 05/28/17 11:52 IMPRESSION: Borderline cardiomegaly without CHF. Guidance Fluoroscopy 06/01/17 00:00 IMPRESSION: Intra procedural imaging and fluoro Assessment & Plan - Diagnosis (1) Chronic kidney disease, stage V requiring chronic dialysis Is this a current diagnosis for this admission?: Yes Plan: Patient is to get a PermCath later today for dialysis. (2) Anemia in chronic kidney disease (CKD) Is this a current diagnosis for this admission?: Yes (3) Secondary hyperparathyroidism (of renal origin) Is this a current diagnosis for this admission?: Yes (4) Diabetes mellitus type 2 in nonobese Is this a current diagnosis for this admission?: Yes Plan: Blood sugars have been in the normal range. (5) HTN (hypertension) Qualifiers: Hypertension type: essential hypertension Qualified Code(s): I10 - Essential (primary) hypertension Is this a current diagnosis for this admission?: Yes Plan: Patient is on Coreg, clonidine, Norvasc, hydralazine, Cardura. (6) Hyperlipidemia Is this a current diagnosis for this admission?: Yes (7) Hypothyroid Is this a current diagnosis for this admission?: Yes Plan: Continue with Synthroid. - Time Time Spent with patient: 25-34 minutes - Inpatient Certification Medical Necessity: Need Close Monitoring Due to Risk of Patient Decompensation
--- NOTE | 2017-06-01 16:32 | PDOC PROGRESS REPORT ---
Subjective Progress Note for:: 06/01/17 Subjective:: Patient underwent PermCath placement by Dr. James this morning. It was uneventful. I came in today her 2 daughters and son and the digital media planner Cari are in the room. We discussed the plan prior to discharge and after discharge. As of this time the family and digital media planner is arranging patient to go home because [facility] is not going to be able to accept her back. Family is concerned about need for physical therapy. I will write an order for physical therapy evaluation and treatment while here in the hospital. Depending on physical therapy's evaluation and recommendation you might need to arrange a home physical therapy if not rehab placement. Family is in agreement with that. Jose Angel is also going to arrange patient's outpatient dialysis at [facility]. Family's questions and concerns were addressed today. Patient said that her appetite is still not the greatest but she also does not seem to like the food that she is being given here in the hospital. However she denies any more nausea or vomiting. Patient was actually able to walk from her bed using a walker up to the hallway. She denies any chest pains no vomiting. No further complaints. Physical Exam Vital Signs: Temp Pulse Resp BP Pulse Ox 97.3 F 59 L 15 173/58 H 99 06/01/17 14:32 06/01/17 14:32 06/01/17 14:32 06/01/17 14:32 06/01/17 14:32 Intake & Output 05/31/17 06/01/17 06/02/17 06:59 06:59 06:59 Intake Total 435 360 Output Total 1300 300 210 Balance -865 -300 150 Weight 64.4 kg 64.4 kg Exam: General appearance: PRESENT: no acute distress, cooperative, well-developed, well-nourished Head exam: PRESENT: atraumatic, normocephalic Eye exam: PRESENT: conjunctiva pale, PERRLA. ABSENT: scleral icterus Neck exam: ABSENT: JVD; PermCath in place of the right side Respiratory exam: PRESENT: Diminished breath sounds. ABSENT: crackles, rales, rhonchi, unlabored, wheezes Cardiovascular exam: PRESENT: Regular rate rhythm -+S1, +S2. ABSENT: diastolic murmur, systolic murmur GI/Abdominal exam: PRESENT: normal bowel sounds, soft. ABSENT: guarding, mass, tenderness Extremities exam: ABSENT: No edema Neurological exam: PRESENT: alert, awake, oriented to person, place and time. Skin exam: PRESENT: dry, warm, Results Laboratory Results: 05/31/17 05:21 05/31/17 05:21 Impressions: Chest X-Ray 05/28/17 11:52 IMPRESSION: Borderline cardiomegaly without CHF. Guidance Fluoroscopy 06/01/17 00:00 IMPRESSION: Intra procedural imaging and fluoro Assessment & Plan - Diagnosis (1) Acute uremia Is this a current diagnosis for this admission?: Yes Plan: Improving with initiation of hemodialysis. (2) Chronic kidney disease, stage V requiring chronic dialysis Is this a current diagnosis for this admission?: Yes Plan: This is due to hypertensive nephrosclerosis with known nephrotic range proteinuria now with end-stage renal disease requiring initiation of renal replacement therapy. We will plan for dialysis tomorrow Continue to hold her torsemide and metolazone. He may need to resume low dose of torsemide once she is more stable. PermCath placed today with the help of Dr. James. master planner is going to arrange outpatient dialysis at [facility]. (3) Hypertensive nephrosclerosis Is this a current diagnosis for this admission?: Yes (4) Anemia in chronic kidney disease (CKD) Is this a current diagnosis for this admission?: Yes Plan: Procrit and Venofer to be given on dialysis. (5) HTN (hypertension) Qualifiers: Hypertension type: essential hypertension Qualified Code(s): I10 - Essential (primary) hypertension Is this a current diagnosis for this admission?: Yes Plan: Continue all home blood pressure medications except diuretics for this time. (6) Secondary hyperparathyroidism (of renal origin) Is this a current diagnosis for this admission?: Yes (7) Diabetes mellitus type 2 in nonobese Is this a current diagnosis for this admission?: Yes - Time Time with patient: Greater than 35 minutes Medications reviewed and adjusted accordingly: Yes Anticipated discharge: Home Within: within 72 hours
[2017-06-01] MEDS ORDERED: TRAMADOL HCL 50 MG TABLET PO PRN (17:13)
[2017-06-01] MEDS: AMLODIPINE BESYLATE 2.5 MG TABLET PO SCH (22:14)
[2017-06-02] MEDS ORDERED: EPOETIN ALFA 5,000 UNIT in SYRINGE, DISPOSABLE, 1 EACH IV PRN (05:00)
[2017-06-02] MEDS ORDERED: IRON SUCROSE COMPLEX INJ/PF 100 MG/5 ML SDV IV PRN (05:00)
[2017-06-02] MEDS ORDERED: HEPARIN SOD (PORCINE) 1,000 UNIT/ML 10 ML VIAL IV PRN (05:00)
[2017-06-02] MEDS ORDERED: NORMAL SALINE 1000 ML 1,000 ML IV PRN (05:00)
[2017-06-02 05:26] LABS: ABSOLUTE EOSINOPHILS # (AUTO) 0.1 10^3/uL (0.0-0.6); ABSOLUTE LYMPHOCYTES (AUTO) 1.3 10^3/uL (0.5-4.7); ABSOLUTE MONOCYTES (AUTO) 0.8 10^3/uL (0.1-1.4); ABSOLUTE NEUT (AUTO) 6.1 10^3/uL (1.7-8.2); BASOPHILS % (AUTO) 0.3 % (0-2); EOSINOPHILS % (AUTO) 1.7 % (0-6); HEMATOCRIT 27.9 % (36.0-47.0); HEMOGLOBIN 9.3 g/dL (12.0-15.5); MEAN CORPUSCULAR HEMOGLOBIN 33.8 pg (27.0-33.4); MEAN CORPUSCULAR HGB CONC 33.3 g/dL (32.0-36.0); MEAN CORPUSCULAR VOLUME 102 fl (80-97); MONOCYTES % (AUTO) 9.4 % (3-13); RED BLOOD COUNT 2.74 10^6/uL (3.72-5.28); RED CELL DISTRIBUTION WIDTH 14.2 % (11.5-14.0); SEGMENTED NEUTROPHILS % (AUTO) 73.6 % (42-78); WHITE BLOOD COUNT 8.4 10^3/uL (4.0-10.5)
[2017-06-02 05:43] LABS: ANION GAP 11 (5-19); BLOOD UREA NITROGEN 35 mg/dL (7-20); CALCIUM 8.3 mg/dL (8.4-10.2); CARBON DIOXIDE 24 mmol/L (22-30); CHLORIDE 102 mmol/L (98-107); CREATININE RESULT 3.58 mg/dL (0.52-1.25); GLUCOSE 114 mg/dL (75-110); POTASSIUM 3.8 mmol/L (3.6-5.0); SODIUM 137.2 mmol/L (137-145)
[2017-06-02] MEDS: ISOSORBIDE DINITRATE 20 MG TABLET PO SCH ×2 (05:44→16:04)
[2017-06-02] MEDS: HYDRALAZINE HCL 50 MG TABLET PO SCH ×2 (05:44→16:03)
[2017-06-02] MEDS: CLONIDINE HCL 0.2 MG TABLET PO SCH ×2 (05:44→16:04)
[2017-06-02] MEDS: LEVOTHYROXINE SODIUM 0.1 MG TABLET PO SCH (07:38)
[2017-06-02] MEDS: LEVOTHYROXINE SODIUM 0.025 MG TABLET PO SCH (07:38)
[2017-06-02] MEDS ORDERED: LACTULOSE SYRUP 20 GM/30 ML UDCUP PO PRN (08:28)
[2017-06-02] MEDS: SENNOSIDES/DOCUSATE 8.6-50 MG 1 EACH TABLET PO SCH ×2 (11:58→17:42)
[2017-06-02] MEDS: DOXAZOSIN MESYLATE 4 MG TABLET PO SCH (11:59)
[2017-06-02] MEDS: ASPIRIN 81 MG TABLET, ENT COATED PO SCH (12:00)
[2017-06-02] MEDS: CARVEDILOL 12.5 MG TABLET PO SCH (12:00)
--- NOTE | 2017-06-02 14:46 | PDOC PROGRESS REPORT ---
Subjective Progress Note for:: 06/02/17 Subjective:: I saw patient this morning at around 8:40 AM while on dialysis. She is doing fine. She denies any nausea or vomiting no chest pains or shortness of breath. He still has no appetite. Otherwise she is comfortable tolerating dialysis well. Physical Exam Vital Signs: Temp Pulse Resp BP Pulse Ox 97.9 F 59 L 18 178/52 H 100 06/02/17 11:47 06/02/17 11:47 06/02/17 11:47 06/02/17 11:47 06/02/17 11:47 Intake & Output 06/01/17 06/02/17 06/03/17 06:59 06:59 06:59 Intake Total 360 400 Output Total 300 410 Balance -300 -50 400 Weight 64.4 kg 64.4 kg Vitals during dialysis: Blood pressure 115/64, heart rate of 55, blood flow rate of 250 mL/min, dialysate flow rate of 500 mL/min. Exam: General appearance: PRESENT: no acute distress, cooperative, well-developed, well-nourished Head exam: PRESENT: atraumatic, normocephalic Eye exam: PRESENT: conjunctiva slightly pale, PERRLA. ABSENT: scleral icterus Neck exam: ABSENT: JVD Respiratory exam: PRESENT: Diminished breath sounds. ABSENT: crackles, rales, rhonchi, unlabored, wheezes Cardiovascular exam: PRESENT: Regular rate rhythm -+S1, +S2. ABSENT: diastolic murmur, systolic murmur GI/Abdominal exam: PRESENT: normal bowel sounds, soft. ABSENT: guarding, mass, tenderness Extremities exam: ABSENT: No edema Neurological exam: PRESENT: alert, awake, oriented to person, place and time. Skin exam: PRESENT: dry, warm, Results Laboratory Results: 06/02/17 04:21 06/02/17 04:21 06/02/17 06/02/17 04:21 04:21 WBC 8.4 RBC 2.74 L Hgb 9.3 L Hct 27.9 L MCV 102 H MCH 33.8 H MCHC 33.3 RDW 14.2 H Plt Count 174 Seg Neutrophils % 73.6 Lymphocytes % 15.0 Monocytes % 9.4 Eosinophils % 1.7 Basophils % 0.3 Absolute Neutrophils 6.1 Absolute Lymphocytes 1.3 Absolute Monocytes 0.8 Absolute Eosinophils 0.1 Absolute Basophils 0.0 Sodium 137.2 Potassium 3.8 Chloride 102 Carbon Dioxide 24 Anion Gap 11 BUN 35 H Creatinine 3.58 H Est GFR ( Amer) 15 L Est GFR (Non-Af Amer) 12 L Glucose 114 H Calcium 8.3 L Impressions: Chest X-Ray 05/28/17 11:52 IMPRESSION: Borderline cardiomegaly without CHF. Guidance Fluoroscopy 06/01/17 00:00 IMPRESSION: Intra procedural imaging and fluoro Assessment & Plan - Diagnosis (1) Acute uremia Is this a current diagnosis for this admission?: Yes Plan: Resolved with initiation of hemodialysis. (2) Chronic kidney disease, stage V requiring chronic dialysis Is this a current diagnosis for this admission?: Yes Plan: This is due to hypertensive nephrosclerosis with known nephrotic range proteinuria now with end-stage renal disease requiring initiation of renal replacement therapy. We did dialysis today for 2.5 hours, using the patient's right IJ PermCath, with 3 potassium bath, blood flow rate of 250 mL per minute, dialysate flow rate of 500 mL per minute, ultrafiltration minimal as tolerated, no heparin and Procrit with 5000 units during dialysis intravenously. Continue to hold her torsemide and metolazone. PermCath placed with the help of Dr. James. urban planner is going to arrange outpatient dialysis at [facility]. I spoke with [facility] staff today. Patient has dialysis chair on Mondays, Wednesdays and Fridays in the morning. So depending on when the patient is going to be discharge she will go on those days. If the physical therapy evaluates her tomorrow and they think that she can go home with home physical therapy and patient is to go to [facility] on Wednesday at 6:45 AM for her first outpatient dialysis at [facility] dialysis unit. However if the patient would need an inpatient short-term rehabilitation then will continue to support patient for dialysis while here in the hospital waiting for placement. I discussed this with Dr. Augustine today. (3) Hypertensive nephrosclerosis Is this a current diagnosis for this admission?: Yes (4) Anemia in chronic kidney disease (CKD) Is this a current diagnosis for this admission?: Yes Plan: Procrit and Venofer to be given on dialysis. (5) HTN (hypertension) Qualifiers: Hypertension type: essential hypertension Qualified Code(s): I10 - Essential (primary) hypertension Is this a current diagnosis for this admission?: Yes Plan: Continue all home blood pressure medications except diuretics for this time. Currently fairly controlled. (6) Secondary hyperparathyroidism (of renal origin) Is this a current diagnosis for this admission?: Yes (7) Diabetes mellitus type 2 in nonobese Is this a current diagnosis for this admission?: Yes - Time Time with patient: 15-25 minutes
--- NOTE | 2017-06-02 14:55 | PDOC PROGRESS REPORT ---
Subjective Progress Note for:: 06/02/17 Subjective:: Patient denies any complaints. She had dialysis this morning. Physical Exam Vital Signs: Temp Pulse Resp BP Pulse Ox 97.9 F 59 L 18 178/52 H 100 06/02/17 11:47 06/02/17 11:47 06/02/17 11:47 06/02/17 11:47 06/02/17 11:47 Intake & Output 06/01/17 06/02/17 06/03/17 06:59 06:59 06:59 Intake Total 360 400 Output Total 300 410 Balance -300 -50 400 Weight 64.4 kg 64.4 kg General appearance: PRESENT: no acute distress Eye exam: PRESENT: conjunctiva pink. ABSENT: scleral icterus Mouth exam: PRESENT: moist, tongue midline Neck exam: ABSENT: JVD Respiratory exam: PRESENT: clear to auscultation suki. ABSENT: rales, rhonchi, wheezes Cardiovascular exam: PRESENT: RRR. ABSENT: diastolic murmur, rubs, systolic murmur GI/Abdominal exam: PRESENT: normal bowel sounds, soft. ABSENT: distended, guarding, mass, organolmegaly, rebound, tenderness Extremities exam: ABSENT: calf tenderness, clubbing Neurological exam: PRESENT: alert, awake, oriented to person, oriented to place , oriented to time, oriented to situation, CN II-XII grossly intact. ABSENT: motor sensory deficit Psychiatric exam: PRESENT: appropriate affect Skin exam: PRESENT: dry, intact, warm. ABSENT: cyanosis, rash Results Laboratory Results: 06/02/17 04:21 06/02/17 04:21 06/02/17 06/02/17 04:21 04:21 WBC 8.4 RBC 2.74 L Hgb 9.3 L Hct 27.9 L MCV 102 H MCH 33.8 H MCHC 33.3 RDW 14.2 H Plt Count 174 Seg Neutrophils % 73.6 Lymphocytes % 15.0 Monocytes % 9.4 Eosinophils % 1.7 Basophils % 0.3 Absolute Neutrophils 6.1 Absolute Lymphocytes 1.3 Absolute Monocytes 0.8 Absolute Eosinophils 0.1 Absolute Basophils 0.0 Sodium 137.2 Potassium 3.8 Chloride 102 Carbon Dioxide 24 Anion Gap 11 BUN 35 H Creatinine 3.58 H Est GFR ( Amer) 15 L Est GFR (Non-Af Amer) 12 L Glucose 114 H Calcium 8.3 L Impressions: Chest X-Ray 05/28/17 11:52 IMPRESSION: Borderline cardiomegaly without CHF. Guidance Fluoroscopy 06/01/17 00:00 IMPRESSION: Intra procedural imaging and fluoro Assessment & Plan - Diagnosis (1) Chronic kidney disease, stage V requiring chronic dialysis Is this a current diagnosis for this admission?: Yes Plan: The patient will be doing dialysis at [facility] on Wednesdays and Wednesday. She has a chair available on Wednesday if she is able to go home tomorrow. (2) Anemia in chronic kidney disease (CKD) Is this a current diagnosis for this admission?: Yes (3) Secondary hyperparathyroidism (of renal origin) Is this a current diagnosis for this admission?: Yes (4) Diabetes mellitus type 2 in nonobese Is this a current diagnosis for this admission?: Yes Plan: Blood sugars have been in the normal range. (5) HTN (hypertension) Qualifiers: Hypertension type: essential hypertension Qualified Code(s): I10 - Essential (primary) hypertension Is this a current diagnosis for this admission?: Yes Plan: Patient is on Coreg, clonidine, Norvasc, hydralazine, Cardura. (6) Hyperlipidemia Is this a current diagnosis for this admission?: Yes (7) Hypothyroid Is this a current diagnosis for this admission?: Yes Plan: Continue with Synthroid. - Time Time Spent with patient: 25-34 minutes - Inpatient Certification Medical Necessity: Need Close Monitoring Due to Risk of Patient Decompensation
[2017-06-02] MEDS ORDERED: FOLIC ACID/VITAMIN B COMP W-C CAPSULE PO SCH (16:00)
[2017-06-02] MEDS ORDERED: ONDANSETRON HCL INJ/PF 4 MG/2 ML SDV IV PRN (17:30)
[2017-06-02] MEDS ORDERED: ONDANSETRON HCL INJ/PF 4 MG/2 ML SDV ONE (17:50)
[2017-06-02 20:32] VITALS: BP 98/49
[2017-06-02] MEDS ORDERED: LORAZEPAM INJ 2 MG/1 ML VIAL IV ONE (21:00)
[2017-06-02 21:14] LABS: ALANINE AMINOTRANSFERASE 20 U/L (9-52); ALKALINE PHOSPHATASE 197 U/L (38-126); ASPARTATE AMINO TRANSFERASE 24 U/L (14-36); BILIRUBIN,DIRECT 0.9 mg/dL (0.0-0.4); CREATINE KINASE 80 U/L (30-135); TOTAL PROTEIN 5.7 g/dL (6.3-8.2)
--- NOTE | 2017-06-02 21:20 | RADIOLOGY REPORT (SQ) ---
EXAM DESCRIPTION: ABDOMEN 2 VIEWS COMPLETED DATE/TIME: 06/02/2017 9:04 pm REASON FOR STUDY: vomiting COMPARISON: CT dated November 07 NUMBER OF VIEWS: Two views. TECHNIQUE: Supine and erect/decubitus radiographic images of the abdomen acquired. LIMITATIONS: None. FINDINGS: FREE AIR: None. No abnormal gas collections. LUNG BASES: Clear. Dialysis catheter is in place. BOWEL GAS PATTERN: Gas pattern is nonobstructive. There is a large amount of stool throughout the co ada consistent with fecal impaction. CALCIFICATIONS: No suspicious calcifications. SOFT TISSUES: No gross mass or suggestion of organomegaly. HARDWARE: None in the abdomen. BONES: No acute fracture. No worrisome bone lesions. OTHER: No other significant finding. IMPRESSION: Extensive stool throughout the colon consistent with fecal impaction. TECHNICAL DOCUMENTATION: JOB ID: [id number] [email or web address]- All Rights Reserved
[2017-06-02] MEDS ORDERED: PANTOPRAZOLE SODIUM 40 MG VIAL IV ONE (21:21)
[2017-06-02] MEDS ORDERED: PANTOPRAZOLE SODIUM 40 MG VIAL IV PRN (21:21)
[2017-06-02 21:25] LABS: TROPONIN I 0.028 ng/mL
[2017-06-02] MEDS ORDERED: NORMAL SALINE 250 ML IV PRN (21:25)
[2017-06-02 21:27] LABS: CREATINE KINASE MB 1.48 ng/mL (<4.55)
--- NOTE | 2017-06-02 21:46 | PDOC CONSULTATION ---
Consultation Consult Date: 06/02/17 Attending physician:: RADHA CHAN Consult reason:: Coffee ground emesis History of Present Illness Admission Date/PCP: 05/28/17 16:26 MELINA CHAVEZ MD History of Present Illness: was called by Dr Valentin earlier this pm, patient has ESRD, dialysis dependant apparently had coffee ground emesis earlier today patient was seen back in 2016, had EGD for nausea and vomiting that test was negative except for some gastritis, at that time was already showing signs of chronic renal failure biopsies were negative, short term H2 flori therapy joan been initiated, patient has not been seen in follow up since then admitted for initiation of hemodialysis. patient likely to be transfered to the ICU spoke with Dr Valentin will need to get follow up H/H, plt count and coagulation profile coffee grounds usually an indication of a previous GI bleed she may need possible EGD however would consider PPI drip, and trasnfusion first she is taking iron supplementation too patient was seen by Nephrology earlier this pm, there was no reported nausea and vomiting she tolerated her dialysis without issue and there were plans to go ahead to try to discharge her Past Medical History Cardiac Medical History: Reports: Congestive Heart Failure, Coronary Artery Disease - stents, Hyperlipidema, Hypertension Pulmonary Medical History: Neurological Medical History: Endocrine Medical History: Reports: Diabetes Mellitus Type 2, Hypothyroidism Renal/ Medical History: Reports: End Stage Renal Disease GI Medical History: Reports: Gastroesophageal Reflux Disease Musculoskeltal Medical History: Reports: Gout, Other - History of cervical spine fracture Psychiatric Medical History: Reports: Depression - New Hematology: Denies: Anemia Past Surgical History Past Surgical History: Reports: Appendectomy, Coronary Stent, Hysterectomy, Orthopedic Surgery - Toe surgery, Tonsillectomy, Other - Breast biopsy, eye surgery Social History Lives with: Other - Assisted living at [facility] Smoking Status: Never Smoker Frequency of Alcohol Use: None Hx Recreational Drug Use: No Drugs: None Hx Prescription Drug Abuse: No - Advance Directive Resuscitation Status: Do Not Resuscitate Family History Family History: CAD, Hypertension Parental Family History Reviewed: Yes Children Family History Reviewed: Unknown Sibling(s) Family History Reviewed.: Unknown Medication/Allergy Home Medications: Acetaminophen [Tylenol 325 mg Tablet] 650 mg PO Q8HP PRN 05/28/17 Albuterol Sulfate [Proair HFA] 2 puff IH Q6HP PRN 05/28/17 Amlodipine Besylate [Norvasc 2.5 mg Tablet] 2.5 mg PO QHS 05/28/17 Aspirin [Ecotrin 81 mg EC Tablet] 81 mg PO DAILY 05/28/17 Calcitriol [Rocaltrol] 0.25 mcg PO MOWEFR@1000 05/28/17 Calcium Carbonate [Tums Chewable 500 mg Tab.chew] 500 mg PO BIDLS 05/28/17 Carvedilol [Coreg 12.5 mg Tablet] 12.5 mg PO Q12 05/28/17 Cholecalciferol (Vitamin D3) [Vitamin D3 1000 Unit Tablet] 1,000 unit PO DAILY 05/28/17 Clonidine HCl [Catapres 0.3 mg Tablet] 0.3 mg PO Q8 05/28/17 Doxazosin Mesylate [Cardura] 8 mg PO DAILY 05/28/17 Doxycycline Hyclate 20 mg PO BID 05/28/17 Ezetimibe [Zetia 10 mg Tablet] 10 mg PO DAILY 05/28/17 Ferrous Sulfate [Feosol] 325 mg PO BID 05/28/17 Fluticasone Propionate [Flonase Nasal [place] 50 Mcg/[place] 16 gm] 2 sprays NASL DAILY 05/28/17 Hydralazine HCl 100 mg PO Q8 05/28/17 Ipratropium/Albuterol Sulfate [Duoneb 3 ml Ampul] 3 ml NEB RTQ6HP PRN 05/28/17 Isosorbide Dinitrate [Isordil Titradose 20 Mg Tablet] 20 mg PO Q8 05/28/17 Levothyroxine Sodium [Synthroid] 125 mcg PO QAM 05/28/17 Nystatin [Mycostatin Topical Powder 15 gm] 1 applic TP PRN PRN 05/28/17 Ondansetron [Zofran Odt 4 mg Tablet] 8 mg PO Q8HP PRN 05/28/17 Sennosides [Senna] 8.6 mg PO DAILYP PRN 05/28/17 Sertraline HCl [Zoloft] 25 mg PO DAILY 05/28/17 Simvastatin [Zocor 20 mg Tablet] 20 mg PO QHS 05/28/17 Sodium Bicarbonate [Sodium Bicarbonate 650 mg Tablet] 650 mg PO DAILY 05/28/17 Spironolactone [Aldactone 25 mg Tablet] 25 mg PO DAILY 05/28/17 Torsemide [Demadex 20 mg Tablet] 40 mg PO DAILY 05/28/17 Allergies/Adverse Reactions: codeine [Codeine] Allergy (Mild, Verified 05/07/17 10:28) n/v enalaprilat dihydrate [From Vasotec] Allergy (Mild, Verified 05/07/17 10:28) coughing cephalexin monohydrate [From Keflex] Allergy (Unknown, Verified 05/07/17 10:28) sulfamethoxazole [From Bactrim] Allergy (Unknown, Verified 05/07/17 10:28) trimethoprim [From Bactrim] Allergy (Unknown, Verified 05/07/17 10:28) Review of Systems Constitutional: PRESENT: anorexia, fatigue. ABSENT: fever(s), headache(s), night sweats Eyes: ABSENT: visual disturbances Ears: PRESENT: hearing changes Nose, Mouth, and Throat: ABSENT: mouth pain, sore throat Cardiovascular: PRESENT: orthropnea. ABSENT: chest pain Respiratory: PRESENT: dyspnea. ABSENT: hemoptysis Gastrointestinal: PRESENT: coffee ground emesis. ABSENT: diarrhea, dysphagia, heartburn, hematemesis Genitourinary: ABSENT: dysuria, hematuria Musculoskeletal: ABSENT: deformity, joint swelling Integumentary: ABSENT: pruritus Neurological: ABSENT: syncope, tingling, tremor(s), vertigo Endocrine: ABSENT: polydipsia, polyphagia, polyuria Hematologic/Lymphatic: ABSENT: easy bruising Physical Exam Vital Signs: Temp Pulse Resp BP Pulse Ox 97.4 F 96 18 98/49 L 96 06/02/17 20:12 06/02/17 20:12 06/02/17 20:12 06/02/17 20:12 06/02/17 20:12 Intake & Output 06/01/17 06/02/17 06/03/17 06:59 06:59 06:59 Intake Total 360 760 Output Total 300 410 600 Balance -300 -50 160 Weight 64.4 kg 64.4 kg General appearance: PRESENT: mild distress, thin Head exam: PRESENT: atraumatic, normocephalic Eye exam: PRESENT: EOMI, PERRLA. ABSENT: periorbital swelling, scleral icterus Mouth exam: PRESENT: moist Neck exam: ABSENT: meningismus, tenderness, thyromegaly Respiratory exam: PRESENT: symmetrical, tachypnea. ABSENT: wheezes Cardiovascular exam: PRESENT: RRR, +S1, +S2 GI/Abdominal exam: PRESENT: soft. ABSENT: De Paz's sign, rebound, rigid, tenderness Extremities exam: ABSENT: joint swelling Neurological exam: PRESENT: altered, CN II-XII grossly intact Psychiatric exam: PRESENT: flat affect Skin exam: PRESENT: normal color, pallor. ABSENT: mottled, petechiae, urticaria , vesicles Results Laboratory Results: 06/02/17 04:21 06/02/17 06/02/17 06/02/17 04:21 04:21 20:50 WBC 8.4 RBC 2.74 L Hgb 9.3 L Hct 27.9 L MCV 102 H MCH 33.8 H MCHC 33.3 RDW 14.2 H Plt Count 174 Seg Neutrophils % 73.6 Lymphocytes % 15.0 Monocytes % 9.4 Eosinophils % 1.7 Basophils % 0.3 Absolute Neutrophils 6.1 Absolute Lymphocytes 1.3 Absolute Monocytes 0.8 Absolute Eosinophils 0.1 Absolute Basophils 0.0 Sodium 137.2 Potassium 3.8 Chloride 102 Carbon Dioxide 24 Anion Gap 11 BUN 35 H Creatinine 3.58 H Est GFR ( Amer) 15 L Est GFR (Non-Af Amer) 12 L Glucose 114 H Calcium 8.3 L Total Bilirubin 1.0 AST 24 ALT 20 Alkaline Phosphatase 197 H Total Protein 5.7 L Albumin 3.0 L 06/02/17 06/02/17 20:50 20:50 Creatine Kinase 80 CK-MB (CK-2) 1.48 Troponin I 0.028 Impressions: Chest X-Ray 05/28/17 11:52 IMPRESSION: Borderline cardiomegaly without CHF. Guidance Fluoroscopy 06/01/17 00:00 IMPRESSION: Intra procedural imaging and fluoro Abdomen X-Ray 06/02/17 20:15 IMPRESSION: Extensive stool throughout the colon consistent with fecal impaction. Assessment & Plan - Diagnosis (1) Coffee ground emesis Plan: has had slow trend of decreasing Hgb but has had instrumentation and dialysis requiring some anticoagulation had apparently no complaints earlier this PM, would check H/H initiate PPI drip check coagulation profile along with plt count may need EGD although previous EGD had been done in the past with largely negative results patient currently may be in the process of being transferred patient's code status may change if needed could have EGD done although I am not sure will change ultimate outcome spoke with Dr Valentin, am aware of patient will stabilize first prior to any interventions - Time Time Spent: 50 to 70 Minutes
[2017-06-02] MEDS ORDERED: PHENYLEPHRINE HCL INJ/PF 10 MG/1 ML SDV ONE (21:47)
[2017-06-02] MEDS ORDERED: PROTAMINE SULFATE INJ/PF 50 MG/5 ML SDV IV ONE (22:00)
[2017-06-02] MEDS ORDERED: PANTOPRAZOLE SODIUM 80 MG in NORMAL SALINE 100 ML IV ONE (22:00)
[2017-06-03] MEDS ORDERED: NORMAL SALINE 100 ML with PANTOPRAZOLE SODIUM 80 MG IV PRN ×2 (08:00)
[2017-06-03] MEDS ORDERED: FLUTICASONE NASAL SPRAY 50 MCG/SPRY 120 SPRAY/16 GM NASL SCH (10:00)
--- NOTE | 2017-06-03 17:16 | Death Summary ---
Summary Date : 06/02/17 Time of :: 21:50 Autopsy: No Resuscitation Status: Do Not Resuscitate - Final Diagnosis (1) Aspiration into airway Is this a current diagnosis for this admission?: Yes (2) Chronic kidney disease, stage V requiring chronic dialysis Is this a current diagnosis for this admission?: Yes (3) Anemia in chronic kidney disease (CKD) Is this a current diagnosis for this admission?: Yes (4) Secondary hyperparathyroidism (of renal origin) Is this a current diagnosis for this admission?: Yes (5) Diabetes mellitus type 2 in nonobese Is this a current diagnosis for this admission?: Yes (6) HTN (hypertension) Is this a current diagnosis for this admission?: Yes (7) Hyperlipidemia Is this a current diagnosis for this admission?: Yes (8) Hypothyroid Is this a current diagnosis for this admission?: Yes Hospital Course:: 87-year-old female with chronic renal failure who presented with symptoms of uremia with nausea and vomiting. The patient was started on dialysis and had a temporary catheter placed. This was then converted over to a permacath in anticipation of her being discharged home. Patient tolerated this well and on the evening of her she had an episode of coffee-ground emesis and aspirated. She then became unresponsive and was transferred to the intensive care unit. She quickly became bradycardic and hypotensive and then developed asystole. She was a DO NOT RESUSCITATE and no further action was taken. [place] the cause of was aspiration because of an upper GI bleed. Contributing factors were chronic renal failure. Date of is 06/02/2017. Time of is 21:50
--- NOTE | 2017-06-03 18:39 | Progress Note ---
Provider Note Provider Note: MD notified by patient's nurse of several hours of intractable nausea and vomiting failing several doses of IV Zofran. Abdominal series, cardiac enzymes, IV Ativan 0.5 ordered. Moments later and REHABILITATION AIDE is called for the patient for aspiration of feculent, bloody emesis, hypotension and altered mental status. Patient was ordered suctioning, normal saline bolus, Manohar-Synephrine, IV Protonix, FFP, protamine sulfate, CBC and transferred to ICU. In route to ICU gastroenterology was consulted for upper GI bleed. In the ICU the patient is unresponsive, hypotensive, bradycardic and apneic with feculent bloody emesis in aspiration canister. Abdominal series reveals severe fecal impaction, CODE STATUS is verified to be DNR. Then rapidly develops asystole. Family members at bedside. Cause of aspiration.
== END 2017-06-02 21:49 | DRG 683 ==
LOC: ER 11:04 → UNDOADMIN 14:15 → EH 14:15 → 4N 16:34 → ICU 06-02 21:39
PROVIDERS: ADMIT Hospitalist; ATTEND Hospitalist
PROC: 5A1D60Z (ICD-10-PCS; principal; 2017-05-28)
PROC: 02H633Z Insertion of Infusion Device into Right Atrium, Percutaneous Approach (ICD-10-PCS; 2017-06-01)
PROC: B244ZZZ Ultrasonography of Right Heart (ICD-10-PCS; 2017-06-01)
PROC: B2141ZZ Fluoroscopy of Right Heart using Low Osmolar Contrast (ICD-10-PCS; 2017-06-01)
DX: I12.0 Hypertensive chronic kidney disease with stage 5 chronic kidney disease or end stage renal disease (principal); N18.5 Chronic kidney disease, stage 5; D63.1 Anemia in chronic kidney disease; E11.22 Type 2 diabetes mellitus with diabetic chronic kidney disease; E78.5 Hyperlipidemia, unspecified; E03.9 Hypothyroidism, unspecified; Z66 Do not resuscitate; K29.70 Gastritis, unspecified, without bleeding; I25.10 Atherosclerotic heart disease of native coronary artery without angina pectoris; M10.9 Gout, unspecified; F32.9 Major depressive disorder, single episode, unspecified; E87.5 Hyperkalemia; K21.9 Gastro-esophageal reflux disease without esophagitis; Z79.82 Long term (current) use of aspirin; Z79.899 Other long term (current) drug therapy; Z95.5 Presence of coronary angioplasty implant and graft; Z90.710 Acquired absence of both cervix and uterus; Z88.6 Allergy status to analgesic agent; Z88.8 Allergy status to other drugs, medicaments and biological substances; Z88.1 Allergy status to other antibiotic agents; Z88.2 Allergy status to sulfonamides; Z88.3 Allergy status to other anti-infective agents; Z82.49 Family history of ischemic heart disease and other diseases of the circulatory system; Z82.3 Family history of stroke; Z80.42 Family history of malignant neoplasm of prostate
CPT/HCPCS: 36415; 532; 71010; 74020; 77001; 80048; 80053; 80076; 81001; 82271; 82550; 82553; 82607; 82728; 82746; 82962; 83540; 83550; 83735; 83970; 84100; 84443; 84466; 84484; 85025; 85045; 85610; 86317; 86704; 87086; 87340; 87522; 93005; 93010; 99285; C1713; C1752; J1644; J1756; J2060; J2250; J2405; J2704; J3010; J3370; J3490; Q4081; Q9967